=== PATIENT | female | born 1980 | race African-American/Black ===

== ENCOUNTER 2020-05-10 12:37 | Outpatient (REF) | payer OTHER, SELFPAY ==
[2020-05-10 13:27] LABS: MANUAL DIFF FLAG NO
[2020-05-10 13:40] LABS: Basophils Percent Auto 0.4 % (0-2); Eosinophils Absolute Auto 0.1 X10*3/uL (0.0-0.4); Eosinophils Percent Auto 1.4 % (0-4); Hematocrit 39.2 % (37-47); Hemoglobin 13.1 g/dl (12.0-16.0); Imm Gran Abs Auto 0.03 X10*3/uL (0.00-0.03); Imm Gran Pct Auto 0.4 % (0.0-0.4); Lymphocytes Absolute Auto 1.4 X10*3/uL (1.2-4.9); Lymphocytes Percent Auto 16.6 % (20-40); Mean Corpuscular HGB Conc 33.4 g/dl (31.0-35.0); Mean Corpuscular Hemoglobin 27.3 pg (27.0-33.0); Mean Corpuscular Volume 81.7 fL (80-98); Mean Platelet Volume 10.4 fL (9.4-12.3); Monocytes Absolute Auto 0.6 X10*3/uL (0.1-1.2); Monocytes Percent Auto 7.5 % (2-11); Neutrophils Absolute Auto 6.3 X10*3/uL (2.0-8.3); Neutrophils Percent Auto 73.7 % (45-73); Platelet Count 323 X10*3/uL (160-400); Red Cell Distribution Width 14.4 % (11.0-16.0); White Blood Count 8.5 X10*3/uL (4.8-10.8)
[2020-05-10 14:17] LABS: Alanine Aminotransferase 23 U/L (0-31); Albumin Level 4.2 g/dL (3.5-5.0); Alkaline Phosphatase 89 U/L (39-117); Anion Gap 13 (12-20); Aspartate Amino Transferase 17 U/L (5-31); Bilirubin Total 0.2 mg/dL (0.0-1.0); Blood Urea Nitrogen 14 mg/dL (9-16); Calcium 9.3 mg/dL (8.4-10.2); Carbon Dioxide 23 mmol/L (22-29); Chloride 105 mmol/L (96-108); Cholesterol 201 mg/dL; Estimated Glomerular Filt Rate 59; Glucose Fasting 104 mg/dL (60-99); HDL Cholesterol 58 mg/dL; LDL Cholesterol Calculated 121 mg/dl; Potassium 4.2 mmol/l (3.3-5.1); Sodium 137 mmol/L (135-145); Total Protein 7.3 g/dL (6.5-8.0); Triglycerides 111 mg/dL
[2020-05-10 14:20] LABS: TSH reflex Free T4 0.75 mIU/mL (0.32-4.0)
[2020-05-10 14:50] LABS: Glucose Urine UA NEG (NEG); Leukocyte Esterase Urine NEG (NEG); Nitrite Urine NEG (NEG); Urine Blood 1+ (NEG); Urine Ketones NEG (NEG); Urine Protein NEG (NEG-TRACE)
[2020-05-10 14:55] LABS: Appearance Urine CLOUDY; Color Urine YELLOW
[2020-05-10 15:13] LABS: WBC Urine 0 /HPF (0-4)
[2020-05-10 15:14] LABS: Mucus Urine TRACE /LPF; Squamous Epithelial Cell Urine 1+ /LPF
== END 2020-05-10 12:38 | disposition home or self-care (01) ==
LOC: HO.LAB 12:37
PROVIDERS: Visit Provider Internal Medicine
DX: Z00.00 Encounter for general adult medical examination without abnormal findings (principal); E66.9 Obesity, unspecified
CPT/HCPCS: 36415; 80053; 80061; 81001; 84443; 85025

== ENCOUNTER 2020-12-28 14:37 | Outpatient (REF) | payer OTHER, SELFPAY | END 2020-12-28 14:38 | disposition home or self-care (01) | LOC: HO.LAB 14:37 | PROVIDERS: PCP Internal Medicine; Visit Provider Internal Medicine | DX: Z20.822 Contact with and (suspected) exposure to COVID-19 (principal) | CPT/HCPCS: C9803; U0003; U0005 ==

== ENCOUNTER 2021-04-13 14:48 | Outpatient (REF) | payer OTHER, SELFPAY | END 2021-04-13 14:49 | disposition home or self-care (01) | LOC: HO.LAB 14:48 | PROVIDERS: Visit Provider Internal Medicine | DX: Z20.822 Contact with and (suspected) exposure to COVID-19 (principal) | CPT/HCPCS: C9803; U0003; U0005 ==

== ENCOUNTER 2022-03-01 15:52 | Outpatient (REF) | payer OTHER, SELFPAY ==
--- NOTE | ~2022-03-01 | MM_ITS ---
EXAMINATION: MM SCREENING DIGITAL BREAST TOMOSYNTHESIS, BILATERAL CLINICAL INFORMATION: Screening. Asymptomatic. The lifetime risk of breast cancer based on the Tyrer-Cuzick Model is 13%. COMPARISON: Mammography: 03/11/2019 (baseline), left breast ultrasound 03/11/2019. TECHNIQUE: Digital breast tomosynthesis is performed in both the craniocaudal and mediolateral oblique views along with computer-aided detection (CAD). Synthesized 2D images are generated from the tomosynthesis. FINDINGS: There are scattered areas of fibroglandular density (ACR BI-RADS breast composition Category b). Parenchymal pattern is similar to prior exam. There is no interval mass or architectural abnormality or abnormal calcifications. No architectural abnormality. Benign asymmetric fibroglandular tissue and/or hamartoma posterior 11:00 left breast is stable. The axilla and skin contours are unremarkable. No significant changes. MM/MM tomosynthesis screening BI IMPRESSION: No mammographic evidence of malignancy. ASSESSMENT: BI-RADS 2: Benign RECOMMENDATION: Routine annual mammography screening. This patient's information was entered into a reminder system with a target due date for their next mammogram.
== END 2022-03-01 15:53 | disposition home or self-care (01) ==
LOC: HO.MAMMO 15:52
PROVIDERS: PCP Internal Medicine; Visit Provider Internal Medicine
DX: Z12.31 Encounter for screening mammogram for malignant neoplasm of breast (principal)
CPT/HCPCS: 77063; 77067

== ENCOUNTER 2022-06-30 15:35 | Outpatient (REF) | payer OTHER, SELFPAY ==
[2022-06-30 17:45] LABS: Alanine Aminotransferase 12 U/L (0-31); Albumin Level 4.1 g/dL (3.5-5.0); Alkaline Phosphatase 92 U/L (39-117); Aspartate Amino Transferase 14 U/L (5-31); Bilirubin Direct < 0.2 mg/dL (0.0-0.5); Bilirubin Total 0.3 mg/dL (0.0-1.0); Total Protein 7.2 g/dL (6.5-8.0)
== END 2022-06-30 15:36 | disposition home or self-care (01) ==
LOC: HO.LAB 15:35
PROVIDERS: Absent Provider Internal Medicine; PCP Internal Medicine; Visit Provider Nurse Practitioner Psychiatric/Mental Health
DX: F10.20 Alcohol dependence, uncomplicated (principal); Z51.81 Encounter for therapeutic drug level monitoring; Z79.899 Other long term (current) drug therapy
CPT/HCPCS: 36415; 80076; 80305; 99212

== ENCOUNTER → 2022-07-10 14:57 | Outpatient (BNVA) | payer OTHER, SELFPAY | PROVIDERS: PCP Internal Medicine; Visit Provider Nurse Practitioner Psychiatric/Mental Health | DX: F10.20 Alcohol dependence, uncomplicated (principal); Z51.81 Encounter for therapeutic drug level monitoring; Z79.899 Other long term (current) drug therapy | CPT/HCPCS: 80305; 81025; 96372; 99212 ==

== ENCOUNTER → 2022-08-07 15:04 | Outpatient (BNVA) | payer OTHER, SELFPAY | PROVIDERS: PCP Internal Medicine; Visit Provider Nurse Practitioner Psychiatric/Mental Health | DX: F10.20 Alcohol dependence, uncomplicated (principal); E66.9 Obesity, unspecified; F33.9 Major depressive disorder, recurrent, unspecified; F41.9 Anxiety disorder, unspecified; Z51.81 Encounter for therapeutic drug level monitoring | CPT/HCPCS: 80305; 81025; 96372; 99212 ==

== ENCOUNTER → 2022-08-30 12:59 | Outpatient (BNVA) | payer OTHER, SELFPAY | PROVIDERS: PCP Internal Medicine; Visit Provider Surgery | DX: K64.8 Other hemorrhoids (principal) | CPT/HCPCS: 46600; 99202 ==

== ENCOUNTER 2022-09-26 07:28 | Day surgery (SDC) | payer OTHER, SELFPAY ==
[2022-09-20 10:01] VITALS: BMI 35.1
[2022-09-26] VITALS (12 sets, daily range): BP systolic 104–157; BP diastolic 23–82; PULSE 58–70; RESP 15–18; TEMP 35.8–36.4; O2SAT 99–100
--- NOTE | 2022-09-26 07:34 | MHC.SHP ---
Pre-Procedural Eval Section A Date of Service: 09/26/22 The patient is an INPATIENT: No Changes since office visit: No Cold of Flu in the past 2 weeks, No New Medical Problems, No Changes in Medication and No Patient answered all questions The History & Physical has been completed within 30 days and I have reviewed it.: Yes Section B Chief Complaint: Other hemorrhoids Allergies: Allergies Allergy/AdvReac Type Severity Reaction Status Date / Time Penicillins [PCN] Allergy Unknown UNKNOWN Verified 08/30/22 13:08 ethinyl estradiol AdvReac Intermediate headache- Verified 09/20/22 09:51 [Sprintec (28)] all hormonal controls norgestimate [Sprintec (28)] AdvReac Intermediate headache- Verified 09/20/22 09:51 all hormonal controls Plan I have reviewed the history and physical and performed a pertinent physical examination on my patient. No changes have occurred unless specified. Time Spent With Patient Time: Total time managing care of this patient today ____ minutes.
[2022-09-26 07:52] LABS: UPreg QC Valid YES; Urine Pregnancy NEGATIVE (NEGATIVE)
--- NOTE | 2022-09-26 08:27 | HO.ANESPROP2 ---
HPI - Anesthesia Eval Consult details Narrative: for hemoroidectomy PMFSH Active Problems Active Problems: All Active Problems (Updated 09/20/22 @ 09:56 by Kamila Ramos RN) Annual physical exam (Acute) Flu-like symptoms (Acute) Anxiety (Acute) Alcohol use disorder, moderate, dependence (Acute) Hemorrhoids (Acute) Hemorrhoids with complication (Acute) Depression (Acute) Obesity (BMI 30-39.9) (Acute) Past Medical History Medical History Alcohol use disorder Depression Hemorrhoids with complication Obesity (BMI 30-39.9) Family History Family History Father Hypertension Diabetes Mother Diabetes Hypertension Myocardial infarction, Onset Age: 65 Maternal Grandmother Myocardial infarction, Onset Age: 50 Sister Devic's disease Family history of problems with anesthesia: No Surgical History Surgical History History of laparoscopic cholecystectomy (~07/2017) Hx of myringotomy S/P section History of Problems with Anesthesia: No Social History Social History Housing: House Alcohol intake: former Patient Tobacco Use Status: Current everyday Tobacco user Tobacco use type: Cigarette Cigarette Packs Per Day: 0 Cigarettes Per Day: 1 e-Cigarette/Vaping Use: Never Used Second Hand Smoke Exposure: No Use of substances other than those prescribed or required for medical reasons: No Are you DNR?: No Advance Directives: No Advance Directives Information Provided: Yes service: No Current occupational status: employed Current occupational exposures/hazards: No Cognitive needs: No Hearing needs: No Vision needs: Yes Meds Allergies Allergy/AdvReac Type Severity Reaction Status Date / Time Penicillins [PCN] Allergy Unknown UNKNOWN Verified 09/26/22 07:51 ethinyl estradiol AdvReac Intermediate headache- Verified 09/26/22 07:51 [Sprintec (28)] all hormonal controls norgestimate [Sprintec (28)] AdvReac Intermediate headache- Verified 09/26/22 07:51 all hormonal controls Exam Exam Date and Time: September 26, 2022 0827 Height,Weight and Vital Signs: Height 5 ft 8.5 in Weight 106.311 kg Last Vital Signs Temp 96.5 F L 09/26/22 07:44 Pulse 68 09/26/22 07:44 Resp 15 09/26/22 07:44 BP 139/82 09/26/22 07:44 Pulse Ox 99 09/26/22 07:44 O2 Del Method Room Air 09/26/22 07:44 Pertinent Lab Results Pertinent Lab Results: Laboratory Tests 09/26/22 07:35 Urine Test NEGATIVE Airway Mallampati Class: II TM Dist: >3cm Neck ROM: Full Loose/Missing/Broken Teeth: Yes, Upper and Lower Heart: rrr Lungs: cta Assessment and Plan Assessment Anesthesia Assessment: Anesthesia Plan Discussed and Chart Reviewed Final Anesthetic Review Family History of Problems with Anesthesia: No History of Problems with Anesthesia: No NPO: Yes ASA Class: II Final Preanesthetic Review: No Changes in Pt Med Stat, Meds/Allgs Chart Reviewed, Consent Obtained/Reviewed and Anes Risks/Benef Reviewed Patient Risk: Intermediate Procedure Risk: Low Anesthetic Plan Anesthetic Plan: GA Disposition: Standard PACU
--- NOTE | 2022-09-26 08:44 | W.PM.OPN ---
Operative Note Operative Note Date of Service: 09/26/22 Narrative: Preop diagnosis: Internal external hemorrhoids with pain and bleeding Postop diagnosis: The same Procedure: Exam under anesthesia, hemorrhoidectomy x3 columns Surgeon: Anthony Mann MD The patient is a 42-year-old female who has large internal external hemorrhoids with lives with hygiene, occasional bleeding and pain and discomfort. She wanted to proceed with hemorrhoidectomy. She understood the technique of the procedure as well as the risks, benefits, and alternatives. She was brought to the operating room. She was placed in prone aleksandar-knife position under general anesthesia via endotracheal tube. The buttocks were retracted with wide tape laterally. The perianal area was prepped and draped in the usual sterile fashion. A surgical time-out was done. The patient received Cefotan 2 g IV preoperatively . The perianal area was infiltrated with lidocaine 1%.Examination of the anal orifice revealed bulky hemorrhoidal columns on the left lateral area, the right side lateral area as well as on the anterior area. These were all prolapsing Anwer a mix of internal external hemorrhoids I inserted the Aneta Manriquez retractor. I examined the anal canal circumferentially. Again, the hemorrhoidal columns which were bulky were noted as described above. I applied a Austin grasper on the hemorrhoidal column on the left side to retract this. I made a figure of 8 stitch at its pedicle using a chromic 3-0. I made an incision around this hemorrhoidal column to the perianal skin using blade 15. I excised this hemorrhoidal column above the plane of sphincters along this incision. I closed this incision with a running chromic 3-0 stitch with additional hemostatic [id number]-[id number] sutures being placed. I proceeded to again applied a Austin grasper on the hemorrhoidal column on the anterior area. I placed a hbvucu-[id number]-[id number] stitch at its pedicle using chromic 3-0. I made an incision around this hemorrhoidal column to the perianal skin using a blade 15 and excised this above the plane of the sphincters. I closed this incision with a running chromic 3-0 stitch. A 3rd hemorrhoidal column was excised in the same manner as above. This was on the right lateral aspect. I observed for hemostasis. Once hemostasis was confirmed, proceeded to then infiltrated the perianal area with Marcaine 0.5% for postop analgesia. I placed a Gelfoam packing, rolled, into the anal canal for further hemostasis. The procedure was then completed. The patient tolerated procedure well. There were no immediate complications. Initial and final counts of sponges and instruments were correct. Estimated blood loss was about 20 cc. The patient was extubated without difficulty and transferred to the recovery room with stable vital signs.
[2022-09-26] MEDS: Acetaminophen 325 MG TABLET 650 MG PO (09:10)
[2022-09-26] MEDS: oxyCODONE HCl Immed Release 5 MG TABLET PO ×2 (09:10→10:38)
[2022-09-26] MEDS: fentaNYL citrate/PF 100 MCG/2 ML VIAL 25 MCG IVPUSH ×4 (09:11→09:34)
[2022-09-26] MEDS: HYDROmorphone HCl 0.5 MG/0.5 ML SYRINGE IVPUSH (09:44)
== END 2022-09-26 11:20 | disposition home or self-care (01) ==
PROVIDERS: Anesthesiology; PCP Internal Medicine; Visit Provider Surgery
PROC: (CPT 46260; principal; 2022-09-26 08:40)
DX: K64.8 Other hemorrhoids (principal); K64.4 Residual hemorrhoidal skin tags; E66.9 Obesity, unspecified; F32.A Depression, unspecified; Z79.899 Other long term (current) drug therapy; Z88.0 Allergy status to penicillin; Z88.8 Allergy status to other drugs, medicaments and biological substances; Z90.49 Acquired absence of other specified parts of digestive tract; F17.210 Nicotine dependence, cigarettes, uncomplicated
CPT/HCPCS: 46260; 81025; 88304; J1100; J1170; J1885; J2250; J2405; J3010

== ENCOUNTER → 2022-11-02 10:23 | Outpatient (BNVA) | payer OTHER, SELFPAY | PROVIDERS: PCP Internal Medicine; Visit Provider Nurse Practitioner Psychiatric/Mental Health | DX: F10.20 Alcohol dependence, uncomplicated (principal); Z32.02 Encounter for pregnancy test, result negative; Z51.81 Encounter for therapeutic drug level monitoring; Z79.899 Other long term (current) drug therapy | CPT/HCPCS: 80305; 81025; 96372; 99212 ==

== ENCOUNTER → 2022-11-23 15:44 | Outpatient (BNVA) | payer OTHER, SELFPAY | PROVIDERS: PCP Internal Medicine; Visit Provider Surgery | DX: Z09 Encounter for follow-up examination after completed treatment for conditions other than malignant neoplasm (principal); Z87.19 Personal history of other diseases of the digestive system | CPT/HCPCS: 99212 ==

== ENCOUNTER → 2022-11-30 15:18 | Outpatient (BNVA) | payer OTHER, SELFPAY | PROVIDERS: PCP Internal Medicine; Visit Provider Nurse Practitioner Psychiatric/Mental Health | DX: F10.20 Alcohol dependence, uncomplicated (principal); F33.9 Major depressive disorder, recurrent, unspecified; Z32.02 Encounter for pregnancy test, result negative | CPT/HCPCS: 80305; 81025; 96372; 99212 ==

== ENCOUNTER → 2022-12-28 13:47 | Outpatient (BNVA) | payer OTHER, SELFPAY | PROVIDERS: PCP Internal Medicine; Visit Provider Nurse Practitioner Psychiatric/Mental Health | DX: Z51.81 Encounter for therapeutic drug level monitoring (principal); F10.20 Alcohol dependence, uncomplicated; Z79.899 Other long term (current) drug therapy | CPT/HCPCS: 80305; 81025; 96372; 99212 ==

== ENCOUNTER 2023-01-25 13:49 | Outpatient (AMB) | payer OTHER, SELFPAY ==
--- NOTE | 2023-01-25 13:56 | A.OFFVIS_ITS ---
Intake Vital Signs 01/25/23 14:13 BP 130/66 Blood Pressure Location Lt radial Position Sitting Pulse 86 Pulse Source Pulse Oximeter Pulse Oximetry (%) 96 Oxygen Delivery Method Room Air Intake Visit Reasons: QUENTIN INJ Intake Note: the patient presents for a quentin inj Color Control Operator Required: No Allergies Penicillins [PCN] Allergy (Unknown, Verified 01/25/23 13:57) UNKNOWN ethinyl estradiol [Sprintec (28)] Adverse Reaction (Intermediate, Verified 01/25/23 13:57) headache- all hormonal controls norgestimate [Sprintec (28)] Adverse Reaction (Intermediate, Verified 01/25/23 13:57) headache- all hormonal controls Do you need a note to return to daycare/school/sports/work: No PFSH Medical History Alcohol use disorder Depression Hemorrhoids with complication Obesity (BMI 30-39.9) Surgical History H/O hemorrhoidectomy (09/26/22) History of laparoscopic cholecystectomy (~07/2017) Hx of myringotomy S/P section Family History Father Hypertension Diabetes Mother Diabetes Hypertension Myocardial infarction, Onset Age: 65 Maternal Grandmother Myocardial infarction, Onset Age: 50 Sister Devic's disease Social History Housing: House Alcohol intake: former Patient Tobacco Use Status: Current everyday Tobacco user Tobacco use type: Cigarette Cigarette Packs Per Day: 0 Cigarettes Per Day: 1 e-Cigarette/Vaping Use: Never Used Second Hand Smoke Exposure: No service: No Current occupational status: employed Current occupational exposures/hazards: No Cognitive needs: No Hearing needs: No Vision needs: Yes Physical Exam Vital Signs: Last Vital Signs Pulse 86 01/25/23 14:13 BP 130/66 01/25/23 14:13 Pulse Ox 96 01/25/23 14:13 Oxygen Delivery Method Room Air 01/25/23 14:13 Office Meds Vivitrol ER Performing Provider: Kylee Vora CNP Administered by: Earnestine Quijano RN on 01/25/23 14:47 Dose Route Admin Location Lot Number Expiration Date [employer] 380 mg IM [id number] 04/24/25 11829-011-01 [employer] Comments: Assessed for infection, no pain, no swelling, no redness, no discharge, no fever. Pt tolerated injection. Results AMB 14 Panel Urine Drug Screen Urine Marijuana (THC) Negative Last Edit by Chloe Rowley CMA on 01/25/23 14:20 Urine Cocaine Negative Last Edit by Chloe Rowley CMA on 01/25/23 14:20 Urine Morphine Negative Last Edit by Chloe Rowley CMA on 01/25/23 14:20 Urine Methamphetamine Negative Last Edit by Chloe Rowley CMA on 01/25/23 14:20 Urine Amphetamine Negative Last Edit by Chloe Rowley CMA on 01/25/23 14:2 0 Urine Benzodiazepine Negative Last Edit by Chloe Rowley CMA on 01/25/23 14:20 Urine Barbiturates Negative Last Edit by Chloe Rowley CMA on 01/25/23 14: 20 Urine Methadone Negative Last Edit by Chloe Rowley CMA on 01/25/23 14:20 Urine Buprenorphine Negative Last Edit by Chloe Rowley CMA on 01/25/23 14 :20 Urine Tricyclic Antidepressant Negative Last Edit by Chloe Rowley CMA on 01/25/23 14:20 Urine MDMA Negative Last Edit by Chloe Rowley CMA on 01/25/23 14:20 Urine Oxycodone Negative Last Edit by Chloe Rowley CMA on 01/25/23 14:20 Urine Phencyclidine Negative Last Edit by Chloe Rowley CMA on 01/25/23 14 :20 Urine Propoxyphene Negative Last Edit by Chloe Rowley CMA on 01/25/23 14: 20 AMB Test Urine AMB Test Urine Negative Last Edit by Chloe Rowley CMA on 14:23 Results Reviewed Results Reviewed: Laboratory Last Values [facility] Negative 01/25/23 14:15 POC Urine Buprenorphine Negative 01/25/23 14:15 POC Urine Morphine Negative 01/25/23 14:15 POC Urine Oxycodone Negative 01/25/23 14:15 POC Urine Methadone Negative 01/25/23 14:15 POC Urine Propoxyphene Negative 01/25/23 14:15 POC Urine Barbiturates Negative 01/25/23 14:15 POC U Tricyclic Antidpr Negative 01/25/23 14:15 POC Urine PCP Negative 01/25/23 14:15 POC Ur Amphetamines Negative 01/25/23 14:15 POC Ur Methamphetamine Negative 01/25/23 14:15 POC Urine MDMA Negative 01/25/23 14:15 POC Ur Benzodiazepine Negative 01/25/23 14:15 POC Urine Cocaine Negative 01/25/23 14:15 POC Ur Marijuana (THC) Negative 01/25/23 14:15 Assessment & Plan Assessment & Plan Orders: Orders AMB Naltrexone Injection Patient Supplied 01/25/23 F10.20 - Alcohol dependence, uncomplicated AMB 14 Panel Urine Drug Screen 01/25/23 Z51.81 - Encounter for therapeutic drug level monitoring AMB HCG Urine Test 01/25/23 Z32.01 - Encounter for test, result positive, Z32.02 - Encounter for test, result negative Coding Diagnoses
[2023-01-25 14:13] VITALS: BP 130/66; PULSE 86; O2SAT 96
--- NOTE | 2023-01-25 14:23 | MHC.OFFVIS ---
Intake Vital Signs 01/25/23 14:13 BP 130/66 Blood Pressure Location Lt radial Position Sitting Pulse 86 Pulse Source Pulse Oximeter Pulse Oximetry (%) 96 Oxygen Delivery Method Room Air Intake Visit Reasons: QUENTIN INJ Allergies Penicillins [PCN] Allergy (Unknown, Verified 01/25/23 13:57) UNKNOWN ethinyl estradiol [Sprintec (28)] Adverse Reaction (Intermediate, Verified 01/25/23 13:57) headache- all hormonal controls norgestimate [Sprintec (28)] Adverse Reaction (Intermediate, Verified 01/25/23 13:57) headache- all hormonal controls HPI QUENTIN INJ HPI Details Patient presents for follow up and vivitrol injection Reports that she continues to abstain from alcohol use and is doing well with recovery Recently traveled to [facility] for family reunion, felt supported, minimal cravings [facility] Medical History Alcohol use disorder Depression Hemorrhoids with complication Obesity (BMI 30-39.9) Surgical History H/O hemorrhoidectomy (09/26/22) History of laparoscopic cholecystectomy (~07/2017) Hx of myringotomy S/P section Family History Father Hypertension Diabetes Mother Diabetes Hypertension Myocardial infarction, Onset Age: 65 Maternal Grandmother Myocardial infarction, Onset Age: 50 Sister Devic's disease Social History Housing: House Alcohol intake: former Patient Tobacco Use Status: Current everyday Tobacco user Tobacco use type: Cigarette Cigarette Packs Per Day: 0 Cigarettes Per Day: 1 e-Cigarette/Vaping Use: Never Used Second Hand Smoke Exposure: No service: No Current occupational status: employed Current occupational exposures/hazards: No Cognitive needs: No Hearing needs: No Vision needs: Yes Review of Systems Const Reports as per HPI and Reports no additional complaints Physical Exam Vital Signs: Last Vital Signs Pulse 86 01/25/23 14:13 BP 130/66 01/25/23 14:13 Pulse Ox 96 01/25/23 14:13 Oxygen Delivery Method Room Air 01/25/23 14:13 Const General: cooperative, healthy appearing, comfortable, well developed and alert Nutritional Appearance: well nourished Orientation/consciousness: patient oriented x3 Limitations: no limitations Neuro General: patient oriented x3 Psych Appearance: well kempt Speech and movement: Normal speech and movement present Affect: normal affect Attitude: cooperative Thought process: Normal thought process present Thought content: Normal thought content present Insight: Good insight present (Psych) Judgement: Good judgement present (Psych) Office Meds Vivitrol ER Performing Provider: Kylee Vora CNP Administered by: Earnestine Quijano RN on 01/25/23 14:47 Dose Route Admin Location Lot Number Expiration Date [employer] 380 mg IM [id number] 04/24/25 [id number] [employer] Comments: Assessed for infection, no pain, no swelling, no redness, no discharge, no fever. Pt tolerated injection. Results AMB 14 Panel Urine Drug Screen Urine Marijuana (THC) Negative Last Edit by Chloe Rowley CMA on 01/25/23 14:20 Urine Cocaine Negative Last Edit by Chloe Rowley CMA on 01/25/23 14:20 Urine Morphine Negative Last Edit by Chloe Rowley CMA on 01/25/23 14:20 Urine Methamphetamine Negative Last Edit by Chloe Rowley CMA on 01/25/23 14:20 Urine Amphetamine Negative Last Edit by Chloe Rowley CMA on 01/25/23 14:20 Urine Benzodiazepine Negative Last Edit by Chloe Rowley CMA on 01/25/23 14:20 Urine Barbiturates Negative Last Edit by Chloe Rowley CMA on 01/25/23 14:20 Urine Methadone Negative Last Edit by Chloe Rowley CMA on 01/25/23 14:20 Urine Buprenorphine Negative Last Edit by Chloe Rowley CMA on 01/25/23 14:20 Urine Tricyclic Antidepressant Negative Last Edit by Chloe Rowley CMA on 01/25/23 14:20 Urine MDMA Negative Last Edit by Chloe Rowley CMA on 01/25/23 14:20 Urine Oxycodone Negative Last Edit by Chloe Rowley CMA on 01/25/23 14:20 Urine Phencyclidine Negative Last Edit by Chloe Rowley CMA on 01/25/23 14:20 Urine Propoxyphene Negative Last Edit by Chloe Rowley CMA on 01/25/23 14:20 AMB Test Urine AMB Test Urine Negative Last Edit by Chloe Rowley CMA on 01/25/23 14:23 Results Reviewed Results Reviewed: Laboratory Last Values [facility] Negative 01/25/23 14:15 POC Urine Buprenorphine Negative 01/25/23 14:15 POC Urine Morphine Negative 01/25/23 14:15 POC Urine Oxycodone Negative 01/25/23 14:15 POC Urine Methadone Negative 01/25/23 14:15 POC Urine Propoxyphene Negative 01/25/23 14:15 POC Urine Barbiturates Negative 01/25/23 14:15 POC U Tricyclic Antidpr Negative 01/25/23 14:15 POC Urine PCP Negative 01/25/23 14:15 POC Ur Amphetamines Negative 01/25/23 14:15 POC Ur Methamphetamine Negative 01/25/23 14:15 POC Urine MDMA Negative 01/25/23 14:15 POC Ur Benzodiazepine Negative 01/25/23 14:15 POC Urine Cocaine Negative 01/25/23 14:15 POC Ur Marijuana (THC) Negative 01/25/23 14:15 Assessment & Plan Assessment & Plan (1) Alcohol use disorder, moderate, dependence: Code(s): F10.20 - Alcohol dependence, uncomplicated Plan: tolerated injection follow up 4 weeks Orders: Orders AMB Naltrexone Injection Patient Supplied 01/25/23 F10.20 - Alcohol dependence, uncomplicated AMB 14 Panel Urine Drug Screen 01/25/23 Z51.81 - Encounter for therapeutic drug level monitoring AMB HCG Urine Test 01/25/23 Z32.01 - Encounter for test, result positive, Z32.02 - Encounter for test, result negative Coding Level of Care Code Est Pt Level 3 (90705) Diagnoses Alcohol use disorder, moderate, dependence F10.20
== END 2023-01-25 15:19 | disposition home or self-care (01) ==
LOC: HO.HCC 13:49
PROVIDERS: PCP Internal Medicine; Visit Provider Nurse Practitioner Psychiatric/Mental Health
DX: F10.20 Alcohol dependence, uncomplicated (principal)
CPT/HCPCS: 99213; J2315

== ENCOUNTER → 2023-01-25 13:49 | Outpatient (BNVA) | payer OTHER, SELFPAY | PROVIDERS: PCP Internal Medicine; Visit Provider Nurse Practitioner Psychiatric/Mental Health | DX: Z51.81 Encounter for therapeutic drug level monitoring (principal); F10.20 Alcohol dependence, uncomplicated; Z79.899 Other long term (current) drug therapy | CPT/HCPCS: 80305; 81025; 96372; 99212 ==

== ENCOUNTER 2023-02-21 13:34 | Outpatient (AMB) | payer OTHER, SELFPAY ==
[2023-02-21 13:36] VITALS: BP 124/78; PULSE 81; O2SAT 96; BMI 38.1
--- NOTE | 2023-02-21 13:36 | A.OFFPC_ITS ---
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 Accompanied by: Self / Same As Patient Allergies Penicillins [PCN] Allergy (Unknown, Verified 02/21/23 14:06) UNKNOWN ethinyl estradiol [Sprintec (28)] Adverse Reaction (Intermediate, Verified 02/21/23 14:06) headache- all hormonal controls norgestimate [Sprintec (28)] Adverse Reaction (Intermediate, Verified 02/21/23 14:06) headache- all hormonal controls Medication List - Last Reconciled 02/21/23 by Henri Mathew MD bupropion HCl (Wellbutrin XL) 150 mg PO QAM hydroxyzine HCl 50 mg PO BID PRN naltrexone 50 mg PO DAILY naltrexone microspheres ER (Vivitrol) 380 mg IM Q4W nicotine (polacrilex) 4 mg buccal Q8H PRN Tobacco use date assessed: 02/21/23 Dental Screening Dental Screen Date: 02/21/23 Did you have a dental visit in the last 12 months?: No Did you have a dental problem in the last 6 months where you did not have access to dental care?: No Was dental information given to patient?: No HPI Annual Exam HPI Details Patient comes in today for her annual physical examination States that she feels okay She denies any headaches or dizziness Denies any chest pains, no SOB No nausea/vomiting, no abdominal pain No change in bowel habits noted Denies any acute urinary symptoms Is currently still on Vivitrol injections for her alcohol use disorder and feels that she is doing very well on this Adds that she is now 114 days smoke-free and states that she does not miss her cigarettes at all but has gained a lot of weight since she quit smoking States that she is now going to be working on her weight She is scheduled for her next mammogram in a couple of weeks on 03/07/23 and has an appointment to see gynecology for her yearly exam and pap smear next month on 03/21/23 [facility] Medical History Alcohol use disorder Depression Hemorrhoids with complication Obesity (BMI 30-39.9) Surgical History H/O hemorrhoidectomy (09/26/22) History of laparoscopic cholecystectomy (~07/2017) Hx of myringotomy S/P section Family History Father Hypertension Diabetes Mother Diabetes Hypertension Myocardial infarction, Onset Age: 65 Maternal Grandmother Myocardial infarction, Onset Age: 50 Sister Devic's disease Social History Housing: House Alcohol intake: former Patient Tobacco Use Status: Former Tobacco user Quit Date: 114 days ago from 02/21/2023 Tobacco use type: Cigarette Cigarette Packs Per Day: 0 Cigarettes Per Day: 1 e-Cigarette/Vaping Use: Never Used Second Hand Smoke Exposure: No service: No Current occupational status: employed Current occupational exposures/hazards: No Cognitive needs: No Hearing needs: No Vision needs: Yes Questionnaire PHQ-9 Over the last 2 weeks, how often have you been bothered by any of the following problems? 1. Little interest or pleasure in doing things: nearly every day 2. Feeling down, depressed, or hopeless: several days 3. Trouble falling or staying asleep, or sleeping too much: several days 4. Feeling tired or having little energy: nearly every day 5. Poor appetite or overeating: several days 6. Feeling bad about yourself - or that you are a failure or have let yourself or your family down: not at all 7. Trouble concentrating on things, such as reading the newspaper or watching television: not at all 8. Moving or speaking so slowly that other people could have noticed. Or the opposite - being so fidgety or restless that you have been moving around a lot more than usual: several days 9. Thoughts that you would be better off or of hurting yourself in some way: not at all Total score: 10 Depression Screening Interpretation: Positive Depression Screening Follow-up: Existing condition and In treatment 28273 - PHQ-9 Billing: Yes Source: Developed by Drs. Shane Membreno, Rola B.Ariel Call and colleagues, with an educational avtar from [employer]. Thrive Questionnaire Date Thrive assessed: 02/21/23 I am a: Patient What is your living situation today?: I have a steady place to live Within the past 12 months, did the food you bought not last and you didn't have the money to get more?: Never true Within the past 12 months, did you worry whether your food would run out before you got money to buy more?: Never true Do you have trouble paying for medicines?: No Do you have trouble getting transportation to medical appointments?: No Do you have trouble paying your heating and electricity bill?: No Do you have trouble taking care of your child, family member or friend?: No Do you have trouble with day-to-day activities such as bathing, preparing meals, shopping, managing finances, etc.?: No Are you currently unemployed and looking for a job?: No Are you interested in more education?: No Please select the resources that you would like help with: None Currently or been in a relationship where the following occur: no concerns reported AUDIT C Alcohol Use Questionnaire (AUDIT-C) 1. How often do you have a drink containing alcohol?: Never Total Score: 0 Score Reviewed/Action Taken: Yes JUDAH-7 AMB Questionnaire JUDAH-7 Date JUDAH - 7 assessed: 02/21/23 Feeling nervous, anxious, or on edge: 1 = Several days Not being able to stop or control worryin = Not at all Worrying too much about different things: 3 = Nearly every day Trouble relaxin = Not at all Being so restless that it is hard to sit still: 0 = Not at all Becoming easily annoyed or irritable: 1 = Several days Feeling afraid as if something awful might happen: 0 = Not at all Total JUDAH-7 score (0-4 normal; 5-9 mild; 10-14 moderate; 15-21 severe): 5 Source: Developed by Drs. Shane Membreno, Ariel Riley and colleagues, with an educational avtar from [employer]. Review of Systems Const Denies chills, Denies fatigue, Denies fever(s), Denies headache(s) and Denies malaise Eyes Denies blurry vision, Denies change in vision, Denies irritation and Denies itchy eyes ENT Denies dysphagia, Denies dizziness, Denies otalgia, Denies headache(s), Denies nasal congestion, Denies neck pain, Denies odynophagia, Denies sinus pain and Denies sore throat Card Denies chest pain, Denies rapid heart rate, Denies irregular heart rhythm, Denies palpitations and Denies dyspnea Resp Denies chest congestion, Denies cough, Denies dyspnea and Denies wheezing GI Denies abdominal pain, Denies bloating, Denies constipation, Denies dysphagia, Denies heartburn, Denies diarrhea, Denies nausea, Denies odynophagia and Denies vomiting Denies hematuria, Denies urinary frequency, Denies dysuria, Denies urinary incontinence and Denies urinary urgency Musc Denies back pain, Denies arthralgias, Denies joint swelling, Denies muscle weakness and Denies neck pain Skin/Breast Denies breast pain, Denies breast mass, Denies change in pigmentation, Denies lesions, Denies rash and Denies unusual bruising Neuro Denies dizziness, Denies headache(s) and Denies paresthesias Psych Denies anxiety and Denies depression Endo Denies fatigue and Denies palpitations Favian/Lymph Denies easy bruising Aller/Immun Denies itchy eyes and Denies wheezing Physical exam (Primary Care) Vital Signs: Last Vital Signs Pulse 81 02/21/23 13:36 BP 124/78 02/21/23 13:36 Pulse Ox 96 02/21/23 13:36 Oxygen Delivery Method Room Air 02/21/23 13:36 BMI result Body Mass Index 38.1 Tobacco/Smoking Status: Tobacco use Status Tobacco use date assessed 02/21/23 02/21/23 13:44 Patient Tobacco Use Status Current everyday Tobacco 02/21/23 13:44 Tobacco use type Cigarette 02/21/23 13:44 e-Cigarette/Vaping Use Never Used 02/21/23 13:44 PHQ-9: PHQ-9 Score PHQ-9: Total score 10 02/21/23 13:44 Depression Screening Interpretation: Positive Depression Screening Follow-up: Existing condition and In treatment Thrive Assessment: Date of Thrive Assessment Date Thrive assessed 02/21/23 02/21/23 13:44 Currently or been in a relationship where the following occur: no concerns reported Const General: no acute distress, alert and awake Orientation/consciousness: patient oriented x3 HENMT Head: Yes normocephalic and Yes atraumatic Ears: external ears normal, TM's normal bilaterally and EAC's normal General nose exam: No nasal discharge present Face and sinus: Yes normal facial exam and Yes sinuses nontender Teeth and gingiva: dentition normal Throat: Yes posterior oropharynx normal and Yes tonsils normal (no TP congestion) Eyes Eyelids: Yes eyelids normal Conjunctivae: conjunctivae normal Pupils: Equal, round and reactive pupils present EOM: EOMs intact bilaterally Neck Neck: Yes no lymphadenopathy and Yes supple Thyroid: Thyroid normal Resp Auscultation: clear to auscultation bilaterally, no rales and no wheezes Cardio Rate: regular rate Rhythm: regular rhythm Heart sounds: no murmurs GI Palpation (GI): Soft to palpation, nontender and No hepatosplenomegaly present Auscultation: normal bowel sounds General: Yes no CVA tenderness Back/Spine/Pelvis Back: no CVA tenderness Thoracic/Lumbar Spine: thoracic and lumbar spine normal to inspection Skin Lesions: no lesions Rashes: no rashes Neuro General: patient oriented x3, moves all extremities, no focal motor deficits and CN's II-XI intact bilaterally Cranial nerves: Yes Equal, round and reactive pupils present Cognition (Neuro): normal cognition Gait exam (Neuro): Normal gait present Extrem General: Yes no clubbing, cyanosis or edema Assessment and Plan Assessment & Plan (1) Annual physical exam: Code(s): Z00.00 - Encounter for general adult medical examination without abnormal findings Plan: Check labs She had her annual mammogram last done in February 2022 and is scheduled for her repeat mammogram in a couple of weeks on 03/07/23 She is also scheduled to see gynecology next month on 03/21/23 for her annual pap smear and staffing program manager exam (2) Alcohol use disorder, moderate, dependence: Code(s): F10.20 - Alcohol dependence, uncomplicated Plan: States that she is currently doing very well on her Vivitrol injections - 380 mg IM Q 4 weeks Continue Naltrexone 50 mg QD Follow up with Kylee Vora as scheduled (3) Anxiety: Code(s): F41.9 - Anxiety disorder, unspecified Plan: Continue Hydroxyzine 50 mg BID PRN Is also on Bupropion XL, which helps with anxiety as well (4) Depression: Comment: Wellbutrin working well, mood improved. Stable affect. Code(s): F32.9 - Major depressive disorder, single episode, unspecified Qualifiers: Depression Type: major depressive disorder Major depression recurrence: recurrent Active/Remission status: currently active Major depression episode severity: unspecified Qualified Code(s): F33.9 - Major depressive disorder, recurrent, unspecified Plan: Continue Bupropion XL 150 mg QD Follow up with psychiatry as scheduled (5) Obesity (BMI 30-39.9): Code(s): E66.9 - Obesity, unspecified Plan: Reinforced diet/exercise as tolerated/lose weight States that she has gained a lot of weight since she quit smoking (is now 114 days since she quit cigarettes completely) and states that she will now start working on her diet and weight loss Plan To return in 1 year for her next annual physical examination Orders: Orders Comprehensive [place]. Panel Fast Today E78.00 - Pure hypercholesterolemia, unspecified, Z00.00 - Encounter for general adult medical examination without abnormal findings Lipid Panel Today E78.00 - Pure hypercholesterolemia, unspecified, Z00.00 - Encounter for general adult medical examination without abnormal findings TSH reflex Free T4 Today E78.00 - Pure hypercholesterolemia, unspecified, Z00.00 - Encounter for general adult medical examination without abnormal findings Vitamin D 25-OH Total Today E55.9 - Vitamin D deficiency, unspecified, Z00.00 - Encounter for general adult medical examination without abnormal findings Complete Blood Count Auto Diff Today Z00.00 - Encounter for general adult medical examination without abnormal findings UA CC w/rflx Micro + Cult Today R30.0 - Dysuria, Z00.00 - Encounter for general adult medical examination without abnormal findings Coding Level of Care Code Est Pt Prev Care 40-64y(92415) Diagnoses Annual physical exam Z00.00 Alcohol use disorder, moderate, dependence F10.20 Anxiety F41.9 Depression F33.9 Depression Type: major depressive disorder Major depression recurrence: recurrent Active/Remission status: currently active Major depression episode severity: unspecified Obesity (BMI 30-39.9) E66.9
== END 2023-02-21 14:18 | disposition home or self-care (01) ==
PROVIDERS: PCP Internal Medicine; Visit Provider Internal Medicine
DX: Z00.00 Encounter for general adult medical examination without abnormal findings (principal); F10.20 Alcohol dependence, uncomplicated; F41.9 Anxiety disorder, unspecified; F33.9 Major depressive disorder, recurrent, unspecified; E66.9 Obesity, unspecified
CPT/HCPCS: 99396

== ENCOUNTER 2023-02-27 14:47 | Outpatient (AMB) | payer OTHER, SELFPAY ==
--- NOTE | 2023-02-27 14:50 | AM.OFFVISNUR ---
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 Allergies Penicillins [PCN] Allergy (Unknown, Verified 02/27/23 14:53) UNKNOWN ethinyl estradiol [Sprintec (28)] Adverse Reaction (Intermediate, Verified 02/27/23 14:53) headache- all hormonal controls norgestimate [Sprintec (28)] Adverse Reaction (Intermediate, Verified 02/27/23 14:53) headache- all hormonal controls Do you need a note to return to daycare/school/sports/work: No Results AMB 14 Panel Urine Drug Screen Urine Marijuana (THC) Negative Last Edit by Chloe Rwoley CMA on 02/27/23 15:07 Urine Cocaine Negative Last Edit by Chloe Rowley CMA on 02/27/23 15:07 Urine Morphine Negative Last Edit by Chloe Rowley CMA on 02/27/23 15:07 Urine Methamphetamine Negative Last Edit by Chloe Rowley CMA on 02/27/23 15:07 Urine Amphetamine Negative Last Edit by Chloe Rowley CMA on 02/27/23 15:07 Urine Benzodiazepine Negative Last Edit by Chloe Rowley CMA on 02/27/23 15:07 Urine Barbiturates Negative Last Edit by Chloe Rowley CMA on 02/27/23 15:07 Urine Methadone Negative Last Edit by Chloe Rowley CMA on 02/27/23 15:07 Urine Buprenorphine Negative Last Edit by Chloe Rowley CMA on 02/27/23 15:07 Urine Tricyclic Antidepressant Negative Last Edit by Chloe Rowley CMA on 02/27/23 15:07 Urine MDMA Negative Last Edit by Chloe Rowley CMA on 02/27/23 15:07 Urine Oxycodone Negative Last Edit by Chloe Rowley CMA on 02/27/23 15:07 Urine Phencyclidine Negative Last Edit by Chloe Rowley CMA on 02/27/23 15:07 Urine Propoxyphene Negative Last Edit by Chloe Rowley CMA on 02/27/23 15:07 AMB Test Urine AMB Test Urine Negative Last Edit by Chloe Rowley CMA on 02/27/23 15:08 Coding Diagnoses Assessment & Plan Assessment & Plan Orders: Orders AMB 14 Panel Urine Drug Screen Today Z51.81 - Encounter for therapeutic drug level monitoring AMB HCG Urine Test Today Z32.01 - Encounter for test, result positive, Z32.02 - Encounter for test, result negative
[2023-02-27 15:02] VITALS: BP 118/84; PULSE 96; O2SAT 97
== END 2023-02-27 15:39 | disposition home or self-care (01) ==
LOC: HO.HCC 14:47
PROVIDERS: PCP Internal Medicine
DX: Z32.02 Encounter for pregnancy test, result negative (principal); Z32.01 Encounter for pregnancy test, result positive; F10.20 Alcohol dependence, uncomplicated; Z51.81 Encounter for therapeutic drug level monitoring
CPT/HCPCS: J2315

== ENCOUNTER → 2023-02-27 14:47 | Outpatient (BNVA) | payer OTHER, SELFPAY | PROVIDERS: PCP Internal Medicine | DX: F11.20 Opioid dependence, uncomplicated (principal) | CPT/HCPCS: 80305; 81025; 96372 ==

== ENCOUNTER 2023-03-07 15:23 | Outpatient (REF) | payer OTHER, SELFPAY | END 2023-03-07 15:24 | disposition home or self-care (01) | LOC: HO.MAMMO 15:23 | PROVIDERS: PCP Internal Medicine; Visit Provider Internal Medicine | DX: Z12.31 Encounter for screening mammogram for malignant neoplasm of breast (principal) | CPT/HCPCS: 77063; 77067 ==

== ENCOUNTER → 2023-03-07 15:45 | Outpatient (BNV) | payer OTHER, SELFPAY | PROVIDERS: PCP Internal Medicine; Visit Provider Radiology Diagnostic Radiology | DX: Z12.31 Encounter for screening mammogram for malignant neoplasm of breast (principal) | CPT/HCPCS: 77063; 77067 ==

== ENCOUNTER 2023-03-14 09:03 | Outpatient (REF) | payer OTHER, SELFPAY ==
[2023-03-14 09:20] LABS: MANUAL DIFF FLAG NO
[2023-03-14 10:13] LABS: Basophils Percent Auto 0.4 % (0-2); Eosinophils Absolute Auto 0.2 X10*3/uL (0.0-0.4); Eosinophils Percent Auto 2.2 % (0-4); Hematocrit 39.1 % (37.0-47.0); Hemoglobin 12.7 g/dl (12.0-16.0); Imm Gran Abs Auto 0.04 X10*3/uL (0.00-0.03); Imm Gran Pct Auto 0.4 % (0.0-0.4); Lymphocytes Absolute Auto 1.9 X10*3/uL (1.2-4.9); Lymphocytes Percent Auto 19.3 % (20-40); Mean Corpuscular HGB Conc 32.5 g/dl (31.0-35.0); Mean Corpuscular Hemoglobin 25.2 pg (27.0-33.0); Mean Corpuscular Volume 77.6 fL (80.0-98.0); Mean Platelet Volume 9.9 fL (9.4-12.3); Monocytes Absolute Auto 0.6 X10*3/uL (0.1-1.2); Monocytes Percent Auto 6.5 % (2-11); Neutrophils Percent Auto 71.2 % (45-73); Platelet Count 442 X10*3/uL (160-400); Red Blood Count 5.04 X10*6/uL (4.20-5.50); Red Cell Distribution Width 14.9 % (11.0-16.0); White Blood Count 9.8 X10*3/uL (4.8-10.8)
[2023-03-14 10:43] LABS: Appearance Urine Clear; Color Urine Yellow; Glucose Urine UA Negative (Negative); Leukocyte Esterase Urine Negative (Negative); Nitrite Urine Negative (Negative); PH 5.5 (5.0-9.0); Specific Gravity - Urine 1.015 (1.005-1.025); Urine Blood Negative (Negative); Urine Ketones Negative (Negative); Urine Protein Negative (Neg-Trace)
[2023-03-14 11:51] LABS: Alanine Aminotransferase 24 U/L (0-31); Albumin Level 3.9 g/dL (3.5-5.0); Alkaline Phosphatase 91 U/L (39-117); Anion Gap 13 (12-20); Aspartate Amino Transferase 18 U/L (5-31); Bilirubin Total 0.3 mg/dL (0.0-1.0); Blood Urea Nitrogen 12 mg/dL (9-16); Calcium 9.9 mg/dL (8.4-10.2); Carbon Dioxide 27 mmol/L (22-29); Chloride 105 mmol/L (96-108); Cholesterol 202 mg/dL (<200); Estimated Glomerular Filt Rate > 60; Glucose Fasting 105 mg/dL (60-99); HDL Cholesterol 57 mg/dL (>40); LDL Cholesterol Calculated 122 mg/dL (<100); Sodium 141 mmol/L (135-145); Total Protein 7.6 g/dL (6.5-8.0); Triglycerides 115 mg/dL (<150)
[2023-03-14 11:54] LABS: TSH reflex Free T4 0.57 uIU/mL (0.32-4.0); Vitamin D 25-OH Total 24.8 ng/mL (>30)
== END 2023-03-14 09:04 | disposition home or self-care (01) ==
LOC: HO.LAB 09:03
PROVIDERS: PCP Internal Medicine; Visit Provider Internal Medicine
DX: Z00.00 Encounter for general adult medical examination without abnormal findings (principal); E78.00 Pure hypercholesterolemia, unspecified; R30.0 Dysuria; E55.9 Vitamin D deficiency, unspecified
CPT/HCPCS: 36415; 80053; 80061; 81003; 82306; 84443; 85025

== ENCOUNTER 2023-03-21 09:15 | Outpatient (REF) | payer OTHER, SELFPAY ==
[2023-03-24 06:39] LABS: HPV mRNA E6/E7 rflx Not Detected (Not Detected)
== END 2023-03-21 09:16 | disposition home or self-care (01) ==
LOC: HO.LNP 09:15
PROVIDERS: PCP Internal Medicine; Visit Provider Obstetrics & Gynecology
DX: Z01.419 Encounter for gynecological examination (general) (routine) without abnormal findings (principal); N85.2 Hypertrophy of uterus
CPT/HCPCS: 87624; 88142; 99386

== ENCOUNTER 2023-03-21 09:15 | Outpatient (AMB) | payer OTHER, SELFPAY ==
--- NOTE | 2023-03-21 09:22 | MHC.OFFVIS ---
Intake Vital Signs 03/21/23 09:24 Height 5 ft 8.5 in Weight 250 lb BMI 37.5 BP 120/82 Intake Visit Reasons: New patient Annual/DO not reschedule Intake Note: no concerns Technician Support Association Required: No Information Interpreted: non-clinical & clinical Warehouse Incentive Selector: Warehouse Incentive Selector Present (Amanda HERNANDES) Accompanied by: Self / Same As Patient Allergies Penicillins [PCN] Allergy (Unknown, Verified 03/21/23 09:23) UNKNOWN ethinyl estradiol [Sprintec (28)] Adverse Reaction (Intermediate, Verified 03/21/23 09:23) headache- all hormonal controls norgestimate [Sprintec (28)] Adverse Reaction (Intermediate, Verified 03/21/23 09:23) headache- all hormonal controls Is last menstrual period known: Yes Last menstrual period: 03/03/23 HPI HPI Comments History of Present Illness Details Presenting for annual exam. No complaints. Last Pap/HPV Last Mammogram was done in 03/07/2023, the results are still pending. Previous mammogram done in 03/16 was [facility] Medical History Alcohol use disorder Hemorrhoids with complication Depression Obesity (BMI 30-39.9) Surgical History H/O hemorrhoidectomy (09/26/22) S/P section History of laparoscopic cholecystectomy (~07/2017) Hx of myringotomy Family History Father Hypertension Diabetes Mother Diabetes Hypertension Myocardial infarction, Onset Age: 65 Maternal Grandmother Myocardial infarction, Onset Age: 50 Sister Devic's disease Social History (Updated 03/21/23 @ 09:27 by Amanda Villa CMA) Household Members: Children Housing: House Alcohol intake: former Patient Tobacco Use Status: Former Tobacco user Quit Date: 114 days ago from 02/21/2023 Tobacco use type: Cigarette Cigarette Packs Per Day: 0 Cigarettes Per Day: 1 e-Cigarette/Vaping Use: Never Used Second Hand Smoke Exposure: No service: No 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: No Sexually active: Yes Sexual orientation: Straight/Heterosexual Gender identity: Female Cognitive needs: No Hearing needs: No Vision needs: Yes Female Reproductive History Menstrual Age of Menarche: 11 Duration of menses: 3-5 days Date of last menstrual period: 03/03/23 Total pregnancies: 4 Full term: 2 Number of Living Children: 2 Date of last pap smear: 03/05/19 Date of Mammogram: 03/07/23 Review of Systems Const All systems reviewed & are unremarkable except as noted in HPI and below Card Reports as per HPI Resp Reports as per HPI GI Reports as per HPI and Reports no additional complaints Reports as per HPI Physical Exam Vital Signs: Last Vital Signs BP 120/82 03/21/23 09:24 BMI result Body Mass Index 37.5 Const General: cooperative, healthy appearing and comfortable Chest Chest palpation & inspection: normal inspection of the chest and normal palpation of entire chest wall Breast/axilla inspection: normal inspection of the breasts and normal inspection of the axillae Breast/axilla palpation: normal palpation of the breasts, normal palpation of the axillae and no axillary lymphadenopathy Resp Effort & Inspection: normal respiratory effort Auscultation: clear to auscultation bilaterally Percussion: percussion normal Cardio Palpation: normal PMI Rate: regular rate Rhythm: regular rhythm Heart sounds: no murmurs and no rubs Peripheral pulses: Peripheral pulses 2+ throughout GI Inspection: Yes normal to inspection Palpation (GI): Soft to palpation, nontender, no guarding, not rigid and No hepatosplenomegaly present Percussion: Yes normal to percussion Auscultation: normal bowel sounds Rectal Exam - Female: deferred General: Yes bladder normal to palpation External Female Exam: No lesion Speculum Exam - Vagina: normal appearance of the vagina, normal palpation, normal vaginal discharge and not erythematous Speculum Exam - Cervix: normal appearance of the cervix and normal palpation Bimanual exam- vagina & uterus: normal bimanual exam, normal palpation, bladder normal to palpation, consistency normal, normal palpation and enlarged Bimanual Exam- Adnexa, other: normal adnexae, no masses and no tenderness Assessment & Plan Assessment & Plan (1) Well woman exam: Code(s): Z01.419 - Encounter for gynecological examination (general) (routine) without abnormal findings Plan: Cotesting done. Mammogram done recently, results still pending. Counseled the patient about the recommended dietary allowance of 1000 mg of Calcium & 600 IU of vitamin D. The patient was instructed to perform monthly self-breast exams and to schedule an annual exam in a year; All questions answered and the patient verbalized understanding. Instructed the patient to schedule annual exam in a year (2) Enlarged uterus: Code(s): N85.2 - Hypertrophy of uterus Plan: Discussed with the patient the findings on pelvic exam, enlarged uterus. Pelvic ultrasound ordered. Instructions given the patient to schedule an ultrasound follow-up appointment within 2 weeks. Coding Level of Care Code New Pt Prev Care 40-64y(94747) Diagnoses Well woman exam Z01.419 Enlarged uterus N85.2
[2023-03-21 09:24] VITALS: BP 120/82; BMI 37.5
== END 2023-03-21 09:55 | disposition home or self-care (01) ==
PROVIDERS: PCP Internal Medicine; Visit Provider Obstetrics & Gynecology
DX: Z01.419 Encounter for gynecological examination (general) (routine) without abnormal findings (principal); N85.2 Hypertrophy of uterus
CPT/HCPCS: 99386

== ENCOUNTER 2023-03-27 15:10 | Outpatient (AMB) | payer OTHER, SELFPAY ==
--- NOTE | 2023-03-27 15:15 | AM.OFFVISNUR ---
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
[2023-03-27 15:24] VITALS: BP 128/72; PULSE 74; O2SAT 96
--- NOTE | 2023-03-27 15:25 | AM.OFFVISNUR ---
Intake Vital Signs 03/27/23 15:24 BP 128/72 Blood Pressure Location Lt radial Position Sitting Pulse 74 Pulse Source Pulse Oximeter Pulse Oximetry (%) 96 Oxygen Delivery Method Room Air Intake Visit Reasons: QUENTIN INJ Allergies Penicillins [PCN] Allergy (Unknown, Verified 03/27/23 15:16) UNKNOWN ethinyl estradiol [Sprintec (28)] Adverse Reaction (Intermediate, Verified 03/27/23 15:16) headache- all hormonal controls norgestimate [Sprintec (28)] Adverse Reaction (Intermediate, Verified 03/27/23 15:16) headache- all hormonal controls Results AMB Test Urine AMB Test Urine Negative Last Edit by Chloe Rowley CMA on 03/27/23 15:28 Coding Assessment & Plan Assessment & Plan Orders: Orders AMB HCG Urine Test Today Z32.01 - Encounter for test, result positive, Z32.02 - Encounter for test, result negative
== END 2023-03-27 15:58 | disposition home or self-care (01) ==
PROVIDERS: PCP Internal Medicine
DX: Z32.02 Encounter for pregnancy test, result negative (principal); Z32.01 Encounter for pregnancy test, result positive; F10.20 Alcohol dependence, uncomplicated
CPT/HCPCS: J2315

== ENCOUNTER → 2023-03-27 15:10 | Outpatient (BNVA) | payer OTHER, SELFPAY | PROVIDERS: PCP Internal Medicine | DX: F10.20 Alcohol dependence, uncomplicated (principal) | CPT/HCPCS: 81025; 96372 ==

== ENCOUNTER 2023-04-04 15:03 | Outpatient (REF) | payer OTHER, SELFPAY ==
--- NOTE | ~2023-04-04 | US_ITS ---
EXAMINATION: US PELVIS CLINICAL INFORMATION: Hypertrophy of the uterus. COMPARISON: No prior pelvic ultrasound. TECHNIQUE: Ultrasound of the pelvis is performed using both transabdominal and transvaginal transducers along with Doppler. Transvaginal imaging is performed due to inadequate visualization transabdominally. FINDINGS: Uterus: The uterus is retroflexed and measures 12.6 x 5.2 x 4.7 cm. The double wall endometrial thickness is 8 mm. The uterus appears smooth. Limited evaluation of the uterus on transvaginal images due to positioning. Cannot confirm or exclude polypoid lesion in the lower uterine segment/cervix. Small amount of fluid in the endometrial and cervical canals, nonspecific. Subcentimeter cervical nabothian cysts. Adnexa: Both ovaries are visualized. There is normal color flow to the adnexa. There is no ovarian torsion. There is no pelvic ascites or fluid collection. Right ovary measures 2.1 x 1.1 x 1.7 cm. Estimated volume of 2 cc. Left ovary measures 3.4 x 2.0 x 2.5 cm and contains follicles. Estimated volume of 9 cc. Trace fluid in the cul-de-sac, nonspecific. US/US pelvic and transvaginal IMPRESSION: Retroflexed uterus, limiting evaluation. Cannot confirm or exclude polypoid lesion in the lower uterine segment/cervix.
== END 2023-04-04 15:04 | disposition home or self-care (01) ==
LOC: HO.US 15:03
PROVIDERS: PCP Internal Medicine; Visit Provider Obstetrics & Gynecology
DX: N85.2 Hypertrophy of uterus (principal)
CPT/HCPCS: 76830; 76856

== ENCOUNTER 2023-04-26 15:42 | Outpatient (AMB) | payer OTHER, SELFPAY ==
[2023-04-26 16:07] VITALS: BP 132/94; PULSE 88; O2SAT 97
--- NOTE | 2023-04-26 16:07 | MHC.AM.SUB ---
Intake Vital Signs 04/26/23 16:07 BP 132/94 H Blood Pressure Location Rt brachial Position Sitting Pulse 88 Pulse Source Pulse Oximeter Pulse Oximetry (%) 97 Oxygen Delivery Method Room Air Intake Visit Reasons: Kalyani Inj Allergies Penicillins [PCN] Allergy (Unknown, Verified 03/27/23 15:16) UNKNOWN ethinyl estradiol [Sprintec (28)] Adverse Reaction (Intermediate, Verified 03/27/23 15:16) headache- all hormonal controls norgestimate [Sprintec (28)] Adverse Reaction (Intermediate, Verified 03/27/23 15:16) headache- all hormonal controls PFSH Medical History Alcohol use disorder Hemorrhoids with complication Depression Obesity (BMI 30-39.9) Surgical History H/O hemorrhoidectomy (09/26/22) S/P section History of laparoscopic cholecystectomy (~07/2017) Hx of myringotomy Family History Father Hypertension Diabetes Mother Diabetes Hypertension Myocardial infarction, Onset Age: 65 Maternal Grandmother Myocardial infarction, Onset Age: 50 Sister Devic's disease Social History (Updated 03/21/23 @ 09:27 by Amanda Villa CMA) Household Members: Children Housing: House Alcohol intake: former Patient Tobacco Use Status: Former Tobacco user Quit Date: 114 days ago from 02/21/2023 Tobacco use type: Cigarette Cigarette Packs Per Day: 0 Cigarettes Per Day: 1 e-Cigarette/Vaping Use: Never Used Second Hand Smoke Exposure: No service: No 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: No Sexual orientation: Straight/Heterosexual Gender identity: Female Cognitive needs: No Hearing needs: No Vision needs: Yes Female Reproductive History Menstrual Age of Menarche: 11 Office Meds Vivitrol 380 mg intramuscular suspension,extended release Performing Provider: Kylee Vora CNP Performing Location: [facility] Administered by: Verónica Sears RN on 04/26/23 16:41 Dose Route Admin Location Dispensed Lot Number Expiration Date [facility] Lead Performance Support Analyst 380 mg IM LG 380 mg [id number] 06/24/25 91972-142-38 [employer] Comments: Assessed for s/s infection from previous injection site-none noted. Pt educated to monitor injection site for s/s of infection, pt verbalized understanding. Pt tolerated injection. Assessment & Plan Assessment & Plan Orders: Orders AMB Naltrexone Injection Today F10.20 - Alcohol dependence, uncomplicated Medications: New bupropion HCl (Wellbutrin XL) 300 mg PO QAM 90 tabs 0RF Refilled nicotine (polacrilex) 4 mg buccal Q8H PRN 108 ea 2RF nicotine cravings naltrexone 50 mg PO DAILY 90 tabs 3RF Discontinued bupropion HCl (Wellbutrin XL) Discontinued Reason: Doctor's Order 150 mg PO QAM 30 tabs 3RF Coding
--- NOTE | 2023-04-26 16:49 | A.OFFVIS_ITS ---
Intake Vital Signs 04/26/23 16:07 BP 132/94 H Blood Pressure Location Rt brachial Position Sitting Pulse 88 Pulse Source Pulse Oximeter Pulse Oximetry (%) 97 Oxygen Delivery Method Room Air Intake Visit Reasons: Kalyani Inj Allergies Penicillins [PCN] Allergy (Unknown, Verified 03/27/23 15:16) UNKNOWN ethinyl estradiol [Sprintec (28)] Adverse Reaction (Intermediate, Verified 03/27/23 15:16) headache- all hormonal controls norgestimate [Sprintec (28)] Adverse Reaction (Intermediate, Verified 03/27/23 15:16) headache- all hormonal controls HPI Kalyani Inj HPI Details Patient presents for follow up and vivitrol injection Continues to do well with recovery-no alcohol for 5 months Working overnights and attending school concerned about her mood and seasonal depression she usually experiences as winter approached Discussed methods for addressing this including light therapy and exercise. Ultimately, patient requesting to increase Wellbutrin dose as she is starting to experience some sx associated with her depression and she does not want them to worsen. [facility] Medical History Alcohol use disorder Hemorrhoids with complication Depression Obesity (BMI 30-39.9) Surgical History H/O hemorrhoidectomy (09/26/22) S/P section History of laparoscopic cholecystectomy (~07/2017) Hx of myringotomy Family History Father Hypertension Diabetes Mother Diabetes Hypertension Myocardial infarction, Onset Age: 65 Maternal Grandmother Myocardial infarction, Onset Age: 50 Sister Devic's disease Social History (Updated 03/21/23 @ 09:27 by Amanda Villa CMA) Household Members: Children Housing: House Alcohol intake: former Patient Tobacco Use Status: Former Tobacco user Quit Date: 114 days ago from Tobacco use type: Cigarette Cigarette Packs Per Day: 0 Cigarettes Per Day: 1 e-Cigarette/Vaping Use: Never Used Second Hand Smoke Exposure: No service: No 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: No Sexual orientation: Straight/Heterosexual Gender identity: Female Cognitive needs: No Hearing needs: No Vision needs: Yes Female Reproductive History Menstrual Age of Menarche: 11 Review of Systems Const Reports as per HPI Physical Exam Vital Signs: Last Vital Signs Pulse 88 04/26/23 16:07 BP 132/94 H 04/26/23 16:07 Pulse Ox 97 04/26/23 16:07 Oxygen Delivery Method Room Air 04/26/23 16:07 Const General: cooperative, healthy appearing, comfortable, well developed and alert Nutritional Appearance: well nourished Orientation/consciousness: patient oriented x3 Limitations: no limitations Neuro General: patient oriented x3 Psych Appearance: well kempt Speech and movement: Normal speech and movement present Affect: normal affect Attitude: cooperative Thought process: Normal thought process present Thought content: Normal thought content present Insight: Good insight present (Psych) Judgement: Good judgement present (Psych) Office Meds Vivitrol 380 mg intramuscular suspension,extended release Performing Provider: Kylee Vora CNP Performing Location: [facility] Administered by: Verónica Sears RN on 04/26/23 16:41 Dose Route Admin Location Dispensed Lot Number Expiration Date [facility] Tool Grinder Operator 380 mg IM LG 380 mg 2023-3007T 06/24/25 [id number] [employer] Comments: Assessed for s/s infection from previous injection site-none noted. Pt educated to monitor injection site for s/s of infection, pt verbalized understanding. Pt tolerated injection. Assessment & Plan Assessment & Plan (1) Alcohol use disorder, moderate, dependence: Code(s): F10.20 - Alcohol dependence, uncomplicated Plan: * Tolerated injection * Medications refilled and wellbutrin dose increased to 300mg QD * Follow-up 4 weeks Orders: Orders AMB Naltrexone Injection 04/26/23 F10.20 - Alcohol dependence, uncomplicated AMB HCG Urine Test 04/26/23 F10.20 - Alcohol dependence, uncomplicated Medications: New bupropion HCl (Wellbutrin XL) 300 mg PO QAM 90 tabs 0RF Refilled nicotine (polacrilex) 4 mg buccal Q8H PRN 108 ea 2RF nicotine cravings naltrexone 50 mg PO DAILY 90 tabs 3RF Discontinued bupropion HCl (Wellbutrin XL) Discontinued Reason: Doctor's Order 150 mg PO QAM 30 tabs 3RF Coding Level of Care Code Est Pt Level 3 (93565) Diagnoses Alcohol use disorder, moderate, dependence F10.20
== END 2023-04-26 16:34 | disposition home or self-care (01) ==
PROVIDERS: PCP Internal Medicine; Visit Provider Nurse Practitioner Psychiatric/Mental Health
DX: F10.20 Alcohol dependence, uncomplicated (principal)
CPT/HCPCS: 99213

== ENCOUNTER → 2023-04-26 15:42 | Outpatient (BNVA) | payer OTHER, SELFPAY | PROVIDERS: PCP Internal Medicine; Visit Provider Nurse Practitioner Family | DX: F10.20 Alcohol dependence, uncomplicated (principal); Z79.899 Other long term (current) drug therapy | CPT/HCPCS: 96372; 99212; J2315 ==

== ENCOUNTER 2023-05-03 09:34 | Outpatient (AMB) | payer OTHER, SELFPAY ==
--- NOTE | 2023-05-03 09:47 | AM.OFFVISNUR ---
Intake Intake Visit Reasons: Flu Shot Allergies Penicillins [PCN] Allergy (Unknown, Verified 03/27/23 15:16) UNKNOWN ethinyl estradiol [Sprintec (28)] Adverse Reaction (Intermediate, Verified 03/27/23 15:16) headache- all hormonal controls norgestimate [Sprintec (28)] Adverse Reaction (Intermediate, Verified 03/27/23 15:16) headache- all hormonal controls Office Procedures Flu Questionnaire Does the patient have a severe egg allergy?: No Does the patient have severe life threatening allergies?: No Does the patient have a fever or illness today?: No Has the patient ever had Guillain-[place] Syndrome?: No Has the patient ever had any past reaction to a flu shot?: No Immunizations flu vacc [id number] 6mos up(PF) 60 mcg(15 mcgx4)/0.5 mL IM syringe Performing Provider: Henri Mathew MD [facility] Administered by: Erendira Gastelum RN on 05/03/23 09:47 Dose Route Admin Location Dispensed Lot Number Expiration Date [employer] Collection Support Specialist 0.5 mL IM Left Deltoid 0.5 mL [id number] 12/23/23 46797-794-43 [employer] VIS Given Date VIS Provided VIS Publication Date 05/03/23 Single Vaccine 21 Eligibility Eligibility Date Funding Source Not [facility] Eligible 05/03/23 Private Coding Assessment & Plan Assessment & Plan Orders: Orders Influenza [id number] Immunization Today Z23 - Encounter for immunization
== END 2023-05-03 09:47 | disposition home or self-care (01) ==
PROVIDERS: PCP Internal Medicine; Visit Provider Internal Medicine
DX: Z23 Encounter for immunization (principal)
CPT/HCPCS: 90471; 90686

== ENCOUNTER 2023-05-24 15:21 | Outpatient (AMB) | payer OTHER, SELFPAY ==
--- NOTE | 2023-05-24 15:56 | MHC.AM.SUB ---
Intake Intake Visit Reasons: Kalyani Inj Allergies Penicillins [PCN] Allergy (Unknown, Verified 03/27/23 15:16) UNKNOWN ethinyl estradiol [Sprintec (28)] Adverse Reaction (Intermediate, Verified 03/27/23 15:16) headache- all hormonal controls norgestimate [Sprintec (28)] Adverse Reaction (Intermediate, Verified 03/27/23 15:16) headache- all hormonal controls HPI Kalyani Inj HPI Details Pt presents for vivitrol injection Denies any concerns with medication or side effects Has been in recovery for nearly 7 months Future thinking, talking about how she is doing well in school and is working towards getting into nursing school [facility] Medical History Alcohol use disorder Hemorrhoids with complication Depression Obesity (BMI 30-39.9) Surgical History H/O hemorrhoidectomy (09/26/22) S/P section History of laparoscopic cholecystectomy (~07/2017) Hx of myringotomy Family History Father Hypertension Diabetes Mother Diabetes Hypertension Myocardial infarction, Onset Age: 65 Maternal Grandmother Myocardial infarction, Onset Age: 50 Sister Devic's disease Social History (Updated 03/21/23 @ 09:27 by Amanda Villa CMA) Household Members: Children Housing: House Alcohol intake: former Patient Tobacco Use Status: Former Tobacco user Quit Date: 114 days ago from 02/21/2023 Tobacco use type: Cigarette Cigarette Packs Per Day: 0 Cigarettes Per Day: 1 e-Cigarette/Vaping Use: Never Used Second Hand Smoke Exposure: No service: No 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: No Sexual orientation: Straight/Heterosexual Gender identity: Female Cognitive needs: No Hearing needs: No Vision needs: Yes Female Reproductive History Menstrual Age of Menarche: 11 Review of Systems Const Reports as per HPI Physical Exam Const General: cooperative, healthy appearing and no acute distress Resp Effort & Inspection: normal respiratory effort Skin General skin exam: no rashes or lesions noted Psych Appearance: grossly normal Mental Status: mental status grossly normal Speech and movement: Normal speech and movement present Affect: normal affect Thought content: Normal thought content present Insight: Good insight present (Psych) Judgement: Good judgement present (Psych) Office Meds Vivitrol 380 mg intramuscular suspension,extended release Performing Provider: Janki Garcias NP Performing Location: [facility] Administered by: Janki Garcias NP on 05/24/23 16:05 Dose Route Admin Location Dispensed Lot Number Expiration Date [employer] Water Quality Assistant 380 mg IM Rg 380 mg [id number] 06/24/25 [id number] youwho Comments: Pt tolerated injection well, encouraged to call [facility] with any questions or concerns. Assessment & Plan Assessment & Plan (1) Alcohol use disorder, moderate, dependence: Code(s): F10.20 - Alcohol dependence, uncomplicated Plan: Pt tolerating injection Follow up in 4 weeks. Call [facility] with questions, concerns, or need an earlier appt Orders: Orders AMB Naltrexone Injection Patient Supplied 05/24/23 F10.20 - Alcohol dependence, uncomplicated Coding Level of Care Code Est Pt Level 3 (72040) Diagnoses Alcohol use disorder, moderate, dependence F10.20
== END 2023-05-24 16:25 | disposition home or self-care (01) ==
PROVIDERS: PCP Internal Medicine; Visit Provider Nurse Practitioner Family
DX: F10.20 Alcohol dependence, uncomplicated (principal)
CPT/HCPCS: 99213

== ENCOUNTER → 2023-05-24 15:21 | Outpatient (BNVA) | payer OTHER, SELFPAY | PROVIDERS: PCP Internal Medicine | DX: F10.20 Alcohol dependence, uncomplicated (principal); Z79.899 Other long term (current) drug therapy | CPT/HCPCS: 96372; 99212; J2315 ==

== ENCOUNTER 2023-06-14 12:25 | Outpatient (AMB) | payer OTHER, SELFPAY ==
[2023-06-14 12:34] VITALS: BP 130/84; BMI 37.5
--- NOTE | 2023-06-14 12:34 | MHC.OFFVIS ---
Intake Vital Signs 06/14/23 12:34 Height 5 ft 8.5 in Weight 250 lb BMI 37.5 BP 130/84 Intake Visit Reasons: US follow up Arabic Translator Required: No Aircraft Delivery Checker: Aircraft Delivery Checker Present Allergies Penicillins [PCN] Allergy (Unknown, Verified 06/14/23 12:34) UNKNOWN ethinyl estradiol [Sprintec (28)] Adverse Reaction (Intermediate, Verified 06/14/23 12:34) headache- all hormonal controls norgestimate [Sprintec (28)] Adverse Reaction (Intermediate, Verified 06/14/23 12:34) headache- all hormonal controls Is last menstrual period known: Yes Last menstrual period: 05/19/23 Post menopausal: No Patient : No Do you need a note to return to daycare/school/sports/work: Yes (for surgery on sunday) HPI HPI Comments History of Present Illness Details Presenting for follow-up ultrasound. Pelvic ultrasound done in 04/16 showed the following: The uterus is retroflexed and measures 12.6 x 5.2 x 4.7 cm. The double wall endometrial thickness is 8 mm. The uterus appears smooth. Limited evaluation of the uterus on transvaginal images due to positioning. Cannot confirm or exclude polypoid lesion in the lower uterine segment/cervix. Small amount of fluid in the endometrial and cervical canals, nonspecific. Subcentimeter cervical nabothian cysts. Adnexa: Both ovaries are visualized. There is normal color flow to the adnexa. There is no ovarian torsion. There is no pelvic ascites or fluid collection. Right ovary measures 2.1 x 1.1 x 1.7 cm. Estimated volume of 2 cc. Left ovary measures 3.4 x 2.0 x 2.5 cm and contains follicles. Estimated volume of 9 cc. Trace fluid in the cul-de-sac, nonspecific. [facility] Medical History Alcohol use disorder Hemorrhoids with complication Depression Obesity (BMI 30-39.9) Surgical History H/O hemorrhoidectomy (09/26/22) S/P section History of laparoscopic cholecystectomy (~07/2017) Hx of myringotomy Family History Father Hypertension Diabetes Mother Diabetes Hypertension Myocardial infarction, Onset Age: 65 Maternal Grandmother Myocardial infarction, Onset Age: 50 Sister Devic's disease Social History Household Members: Children Housing: House Alcohol intake: former Patient Tobacco Use Status: Former Tobacco user Quit Date: 114 days ago from 02/21/2023 Tobacco use type: Cigarette Cigarette Packs Per Day: 0 Cigarettes Per Day: 1 e-Cigarette/Vaping Use: Never Used Second Hand Smoke Exposure: No service: No 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: No Sexual orientation: Straight/Heterosexual Gender identity: Female Cognitive needs: No Hearing needs: No Vision needs: Yes Female Reproductive History Menstrual Age of Menarche: 11 Date of last menstrual period: 05/19/23 control method: none Total pregnancies: 2 Full term: 2 Date of last pap smear: 03/22/23 (negative) Review of Systems Card Reports as per HPI and Reports no additional complaints Resp Reports as per HPI and Reports no additional complaints GI Reports as per HPI and Reports no additional complaints Reports as per HPI Physical Exam Vital Signs: Last Vital Signs BP 130/84 06/14/23 12:34 BMI result Body Mass Index 37.5 Const General: cooperative, healthy appearing and comfortable Chest Chest palpation & inspection: normal inspection of the chest and normal palpation of entire chest wall Breast/axilla inspection: normal inspection of the breasts and normal inspection of the axillae Breast/axilla palpation: normal palpation of the breasts, normal palpation of the axillae and no axillary lymphadenopathy Resp Effort & Inspection: normal respiratory effort Auscultation: clear to auscultation bilaterally Percussion: percussion normal Cardio Palpation: normal PMI Rate: regular rate Rhythm: regular rhythm Heart sounds: no murmurs and no rubs Peripheral pulses: Peripheral pulses 2+ throughout GI Inspection: Yes normal to inspection Palpation (GI): Soft to palpation, nontender, no guarding, not rigid and No hepatosplenomegaly present Percussion: Yes normal to percussion Auscultation: normal bowel sounds Rectal Exam - Female: deferred Assessment & Plan Assessment & Plan (1) Abnormal endometrial ultrasound: Comment: Nonvisualization of the uterine segment cannot confirm or exclude polyp by ultrasound Code(s): R93.5 - Abnormal findings on diagnostic imaging of other abdominal regions, including retroperitoneum Plan: Discussed with the patient the results of the ultrasound with nonvisualization of the lower uterine segment, cannot exclude or confirm polypoid lesion. Options of treatment discussed with the patient include repeat ultrasound versus hysteroscopy D&C possible polypectomy. All pros and cons, risks and benefits of each were discussed the patient, the patient decided to proceed with hysteroscopy D&C possible polypectomy/myomectomy. Discussed with the patient the procedure , all benefits and risks including but not limited to inability to complete the procedure , bleeding, infection, possible need for blood transfusion with all its risk ( HIV,syphilis, Hepatitis, anaphylaxis shock, others..), injury to bladder, rectum, possible need for laparoscopy/laparotomy or hysterectomy. The patient verbalized understanding and signed the consent. Instructions given the patient to schedule a 2 week postoperative appointment Coding Level of Care Code Est Pt Level 3 (28788) Diagnoses Abnormal endometrial ultrasound R93.5
== END 2023-06-14 14:12 | disposition home or self-care (01) ==
LOC: HO.HWS 12:25
PROVIDERS: PCP Internal Medicine; Visit Provider Obstetrics & Gynecology
DX: R93.5 Abnormal findings on diagnostic imaging of other abdominal regions, including retroperitoneum (principal)
CPT/HCPCS: 99213

== ENCOUNTER → 2023-06-14 12:25 | Outpatient (BNVA) | payer OTHER, SELFPAY | PROVIDERS: PCP Internal Medicine; Visit Provider Obstetrics & Gynecology | DX: R93.5 Abnormal findings on diagnostic imaging of other abdominal regions, including retroperitoneum (principal) | CPT/HCPCS: 99212 ==

== ENCOUNTER 2023-06-21 09:22 | Outpatient (AMB) | payer OTHER, SELFPAY ==
--- NOTE | 2023-06-21 09:31 | AM.OFFVISNUR ---
Intake Vital Signs 06/21/23 09:38 BP 122/78 Blood Pressure Location Lt radial Position Sitting Pulse 88 Pulse Source Pulse Oximeter Pulse Oximetry (%) 99 Oxygen Delivery Method Room Air Intake Visit Reasons: Kalyani Inj Intake Note: the patient presents for a kalyani inj Hydro Plant Operator Required: No Allergies Penicillins [PCN] Allergy (Unknown, Verified 06/21/23 09:39) UNKNOWN ethinyl estradiol [Sprintec (28)] Adverse Reaction (Intermediate, Verified 06/21/23 09:39) headache- all hormonal controls norgestimate [Sprintec (28)] Adverse Reaction (Intermediate, Verified 06/21/23 09:39) headache- all hormonal controls Do you need a note to return to daycare/school/sports/work: No Nursing Note Met with pt for AUD follow up and Vivitrol injection. Pt reports over 230 days in recovery. Utilizes family support, Facebook, God, stays busy with school. 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 Pt reports holidays went well, no alcohol cravings. Pt going to [place] for New Year's, does not anticipate any difficulty with maintaining recovery. Pt positive and future oriented. Office Meds Vivitrol 380 mg intramuscular suspension,extended release Performing Provider: Janki Garcias NP Performing Location: [facility] Administered by: Mely Farris on 06/21/23 10:08 Dose Route Admin Location Dispensed Lot Number Expiration Date [facility] Open Winder 380 mg IM LG 380 mg 2023-1020T 08/22/25 [id number] [employer] Comments: Pt tolerated injection well. Educated on signs/symptoms of infection, denies questions or concerns. Encouraged to call the [facility] if needed. Results AMB Test Urine AMB Test Urine Negative Last Edit by Chloe Rowley CMA on 06/21/23 09:40 Coding Assessment & Plan Assessment & Plan Orders: Orders AMB HCG Urine Test Today Z32.01 - Encounter for test, result positive, Z32.02 - Encounter for test, result negative AMB Naltrexone Injection Patient Supplied Today F10.20 - Alcohol dependence, uncomplicated
[2023-06-21 09:38] VITALS: BP 122/78; PULSE 88; O2SAT 99
== END 2023-06-21 10:11 | disposition home or self-care (01) ==
PROVIDERS: PCP Internal Medicine
DX: Z32.02 Encounter for pregnancy test, result negative (principal); Z32.01 Encounter for pregnancy test, result positive; F10.20 Alcohol dependence, uncomplicated

== ENCOUNTER → 2023-06-21 09:22 | Outpatient (BNVA) | payer OTHER, SELFPAY | PROVIDERS: PCP Internal Medicine | DX: F10.20 Alcohol dependence, uncomplicated (principal); Z32.02 Encounter for pregnancy test, result negative; Z98.890 Other specified postprocedural states | CPT/HCPCS: 81025; 96372; J2315 ==

== ENCOUNTER 2023-07-13 07:21 | Day surgery (SDC) | payer OTHER, SELFPAY ==
[2023-07-10 13:53] VITALS: BMI 37.5
--- NOTE | 2023-07-11 10:39 | P.CONAN_ITS ---
Documented by User: Kathy Farr NP 07/11/23 10:40 HPI - Anesthesia Eval Consult details Narrative: 42yo F for D&C Hysteroscopy,poss myomectomy,poss polypectomy PMFSH Active Problems Active Problems: All Active Problems (Updated 06/14/23 @ 12:55 by David David MD) Abnormal endometrial ultrasound (Acute) Enlarged uterus (Acute) Well woman exam (Acute) Hemorrhoids (Acute) Alcohol use disorder, moderate, dependence (Acute) Anxiety (Acute) Flu-like symptoms (Acute) Annual physical exam (Acute) Hemorrhoids with complication (Acute) Depression (Acute) Obesity (BMI 30-39.9) (Acute) Past Medical History Medical History Alcohol use disorder Hemorrhoids with complication Depression Obesity (BMI 30-39.9) Family History Family History Father Hypertension Diabetes Mother Diabetes Hypertension Myocardial infarction, Onset Age: 65 Maternal Grandmother Myocardial infarction, Onset Age: 50 Sister Devic's disease Family history of problems with anesthesia: No Surgical History Surgical History H/O hemorrhoidectomy (09/26/22) S/P section History of laparoscopic cholecystectomy (~07/2017) Hx of myringotomy History of Problems with Anesthesia: No Social History Social History Household Members: Children Housing: House Alcohol intake: former Patient Tobacco Use Status: Former Tobacco user Quit Date: 114 days ago from 02/21/2023 Tobacco use type: Cigarette Cigarette Packs Per Day: 0 Cigarettes Per Day: 1 e-Cigarette/Vaping Use: Never Used Second Hand Smoke Exposure: No Use of substances other than those prescribed or required for medical reasons: No Are you DNR?: No Advance Directives: No Advance Directives Information Provided: Yes service: No 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: No Sexual orientation: Straight/Heterosexual Gender identity: Female Cognitive needs: No Hearing needs: No Vision needs: Yes Meds Allergies Allergy/AdvReac Type Severity Reaction Status Date / Time Penicillins [PCN] Allergy Unknown UNKNOWN Verified 07/13/23 07:38 ethinyl estradiol AdvReac Intermediate headache- Verified 07/13/23 07:38 [Sprintec (28)] all hormonal controls norgestimate [Sprintec (28)] AdvReac Intermediate headache- Verified 07/13/23 07 :38 all hormonal controls Exam Height,Weight and Vital Signs: Height 5 ft 8.5 in Weight 113.398 kg Pertinent Lab Results Pertinent Lab Results: Laboratory Tests 03/14/23 09:19 WBC 9.8 Hgb 12.7 Hct 39.1 Plt Count 442 H Sodium 141 Potassium 4.0 Chloride 105 Carbon Dioxide 27 BUN 12 Creatinine 0.99 Assessment and Plan Assessment Anesthesia Assessment: Chart Reviewed Final Anesthetic Review Family History of Problems with Anesthesia: No History of Problems with Anesthesia: No Documented by User: Mahesh Ibarra MD 07/13/23 09:07 [facility] Past Medical History Medical History Alcohol use disorder Hemorrhoids with complication Depression Obesity (BMI 30-39.9) Patient : No Family History Family History Father Hypertension Diabetes Mother Diabetes Hypertension Myocardial infarction, Onset Age: 65 Maternal Grandmother Myocardial infarction, Onset Age: 50 Sister Devic's disease Surgical History Surgical History H/O hemorrhoidectomy (09/26/22) S/P section History of laparoscopic cholecystectomy (~07/2017) Hx of myringotomy Social History Social History Household Members: Children Housing: House Alcohol intake: former Patient Tobacco Use Status: Former Tobacco user Quit Date: 114 days ago from 02/21/2023 Tobacco use type: Cigarette Cigarette Packs Per Day: 0 Cigarettes Per Day: 1 e-Cigarette/Vaping Use: Never Used Second Hand Smoke Exposure: No Use of substances other than those prescribed or required for medical reasons: No Are you DNR?: No Advance Directives: No Advance Directives Information Provided: Yes service: No 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: No Sexual orientation: Straight/Heterosexual Gender identity: Female Cognitive needs: No Hearing needs: No Vision needs: Yes Meds Allergies Allergy/AdvReac Type Severity Reaction Status Date / Time Penicillins [PCN] Allergy Unknown UNKNOWN Verified 07/13/23 07:38 ethinyl estradiol AdvReac Intermediate headache- Verified 07/13/23 07:38 [Sprintec (28)] all hormonal controls norgestimate [Sprintec (28)] AdvReac Intermediate headache- Verified 07/13/23 07:38 all hormonal controls Exam Airway Mallampati Class: I TM Dist: >3cm Neck ROM: Full Loose/Missing/Broken Teeth: No Heart: ok Lungs: ok Assessment and Plan Assessment Anesthesia Assessment: Anesthesia Plan Discussed Final Anesthetic Review NPO: Yes ASA Class: III Final Preanesthetic Review: No Changes in Pt Med Stat, Meds/Allgs Chart Reviewed, Consent Obtained/Reviewed and Anes Risks/Benef Reviewed Patient Risk: Intermediate Procedure Risk: Low Anesthetic Plan Anesthetic Plan: GA and Agree w/ Assess. and Plan Disposition: Standard PACU
[2023-07-13 07:43] VITALS: BMI 40.4
[2023-07-13 08:03] VITALS: BP 150/92; PULSE 74; RESP 20; TEMP 36.7; O2SAT 98
[2023-07-13 08:07] LABS: UPreg QC Valid YES; Urine Pregnancy NEGATIVE (NEGATIVE)
[2023-07-13] MEDS: Lactated Ringers 1,000 ML 100 ML IVCONT (08:17)
--- NOTE | 2023-07-13 09:05 | P.HPSUR_ITS ---
Pre-Procedural Eval Section A Date of Service: 07/13/23 The patient is an INPATIENT: No Changes since office visit: No Cold of Flu in the past 2 weeks, No New Medical Problems, No Changes in Medication and No Patient answered all questions The History & Physical has been completed within 30 days and I have reviewed it.: Yes Section B Chief Complaint: Abnormal findings on diagnostic imaging of other a Allergies: Allergies Allergy/AdvReac Type Severity Reaction Status Date / Time Penicillins [PCN] Allergy Unknown UNKNOWN Verified 07/13/23 07:38 ethinyl estradiol AdvReac Intermediate headache- Verified 07/13/23 07:38 [Sprintec (28)] all hormonal controls norgestimate [Sprintec (28)] AdvReac Intermediate headache- Verified 07/13/23 07 :38 all hormonal controls Plan Diagnosis/Plan: Unchanged I have reviewed the history and physical and performed a pertinent physical examination on my patient. No changes have occurred unless specified. Time Spent With Patient Time: Total time managing care of this patient today ____ minutes.
--- NOTE | 2023-07-13 09:33 | PM.OP ---
Brief Operative Note Date of Service: 07/13/23 Pre-op diagnosis: ? Abnormal endometrium by ultrasound Post-op diagnosis: same (Normal endometrial cavity) Procedure: Hysteroscopy D&C Surgeon: David David MD Anesthesia: GLMA Was an Steam Shovel Operating Engineer used for this Procedure?: No Estimated blood loss (mL): 0 Pathology: other (Endometrial Scrapping. ) Condition: stable Disposition: PACU
--- NOTE | 2023-07-13 09:33 | W.PM.OPN ---
Operative Note Operative Note Date of Service: 07/13/23 Narrative: Preop Diagnosis: ? Abnormal endometrium by ultrasound Operation: Diagnostic Hysteroscopy, Dilataion & Curettage Post Op Diagnosis: Normal endometrial and endocervical cavity, no evidence of pathology QBL: Minimal Anesthesia: GLMA Surgeon: David David MD It Business Systems Analyst: None Complication: None Pathology: Endometrial Scrapings Procedure: The patient was put in the dorsal lithotomy position, scrubbed, and draped in the usual manner. A sterile speculum was inserted in the patient's vagina. The anterior lip of the cervix was grasped with a single tooth tenaculum. The cervix was dilated up to 5 mm, then the scope was inserted in the patient's uterus. Inspection revealed normal endocervical & endometrial cavity with no evidence of pathology. The scope was taken out of the uterine cavity , then sharp curetting was carried on with no complications. At the end of the procedure, all instruments were taken out of the patient uterine and vaginal cavity. The single tooth tenaculum was removed and homeostasis was assured using pressure. The patient tolerated the procedure well and was transferred to the PACU in a stable condition.
[2023-07-13 09:42] VITALS: BP 152/93; PULSE 76; RESP 16; TEMP 36.1; O2SAT 99
[2023-07-13 09:47] VITALS: BP 128/45; PULSE 76; RESP 16; O2SAT 99
[2023-07-13] MEDS: Acetaminophen 325 MG TABLET 650 MG PO (09:48)
[2023-07-13 09:52] VITALS: BP 126/82; PULSE 73; RESP 16; O2SAT 99
[2023-07-13 09:57] VITALS: BP 128/87; PULSE 72; RESP 16; O2SAT 99
[2023-07-13] MEDS: Acetaminophen 325 MG TABLET PO (09:57)
[2023-07-13 10:12] VITALS: BP 144/89; PULSE 83; RESP 20; TEMP 36.2; O2SAT 99
== END 2023-07-13 10:39 | disposition home or self-care (01) ==
PROVIDERS: Nurse Practitioner; PCP Internal Medicine; Visit Provider Obstetrics & Gynecology
PROC: 0UDB8ZZ Extraction of Endometrium, Via Natural or Artificial Opening Endoscopic (ICD-10-PCS; CPT 58558; principal; 2023-07-13 09:00)
DX: R93.5 Abnormal findings on diagnostic imaging of other abdominal regions, including retroperitoneum (principal); N85.2 Hypertrophy of uterus; F10.20 Alcohol dependence, uncomplicated; E66.9 Obesity, unspecified; Z68.37 Body mass index [BMI] 37.0-37.9, adult; Z87.891 Personal history of nicotine dependence
CPT/HCPCS: 58558; 81025; 88305; J1885; J2250; J2405; J2704; J3010

== ENCOUNTER → 2023-07-13 07:21 | Outpatient (BNV) | payer OTHER, SELFPAY | PROVIDERS: PCP Internal Medicine; Visit Provider Obstetrics & Gynecology | DX: R93.5 Abnormal findings on diagnostic imaging of other abdominal regions, including retroperitoneum (principal) | CPT/HCPCS: 58558 ==

== ENCOUNTER 2023-07-19 13:29 | Outpatient (AMB) | payer OTHER, SELFPAY ==
--- NOTE | 2023-07-19 13:32 | AM.OFFVISNUR ---
Intake Vital Signs 07/19/23 13:43 BP 130/80 Blood Pressure Location Rt radial Position Sitting Pulse 83 Pulse Source Pulse Oximeter Pulse Oximetry (%) 96 Oxygen Delivery Method Room Air Intake Visit Reasons: sera inj Intake Note: the patient presents for a sera inj Allergies Penicillins [PCN] Allergy (Unknown, Verified 07/19/23 13:33) UNKNOWN ethinyl estradiol [Sprintec (28)] Adverse Reaction (Intermediate, Verified 07/19/23 13:33) headache- all hormonal controls norgestimate [Sprintec (28)] Adverse Reaction (Intermediate, Verified 07/19/23 13:33) headache- all hormonal controls Nursing Note Pt. presents for vivitrol injection.? Pt A&O x 4 pleasant and cooperative with care.? ? Pt. reports recovery is going well.? denies any breakthrough cravings/urges and also denies any SE from injection other than immediate pain following injection. 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 Pt stated that her seasonal depression feels worse, denies SI but states feeling more tired. Pt. will F/U in clinic in four weeks for check in and injection, will meet with Kylee next visit as well. Office Meds Vivitrol 380 mg intramuscular suspension,extended release Performing Provider: Kylee Vora CNP Performing Location: [facility] Administered by: Nidia Larkin RN on 07/19/23 13:36 Dose Route Admin Location Dispensed Lot Number Expiration Date [facility] Digital Performance Analyst 380 mg IM RG 380 mg [id number] 09/22/25 [id number] [employer] Results AMB Test Urine AMB Test Urine Negative Last Edit by Chloe Rowley CMA on 07/19/23 14:06 Coding Assessment & Plan Assessment & Plan Orders: Orders AMB Naltrexone Injection Patient Supplied Today F10.20 - Alcohol dependence, uncomplicated AMB HCG Urine Test Today Z32.01 - Encounter for test, result positive, Z32.02 - Encounter for test, result negative
[2023-07-19 13:43] VITALS: BP 130/80; PULSE 83; O2SAT 96
== END 2023-07-19 14:13 | disposition home or self-care (01) ==
PROVIDERS: PCP Internal Medicine
DX: Z32.02 Encounter for pregnancy test, result negative (principal); Z32.01 Encounter for pregnancy test, result positive; F10.20 Alcohol dependence, uncomplicated

== ENCOUNTER → 2023-07-19 13:29 | Outpatient (BNVA) | payer OTHER, SELFPAY | PROVIDERS: PCP Internal Medicine | DX: F10.20 Alcohol dependence, uncomplicated (principal) | CPT/HCPCS: 81025; 96372; J2315 ==

== ENCOUNTER 2023-07-25 15:15 | Outpatient (AMB) | payer OTHER, SELFPAY ==
--- NOTE | 2023-07-25 15:28 | MHC.OFFVIS ---
Intake Vital Signs 07/25/23 15:30 Height 5 ft 8.5 in Weight 250 lb BMI 37.5 BP 130/70 Intake Visit Reasons: post op Management Services Technician Required: No Information Interpreted: non-clinical & clinical Accompanied by: Self / Same As Patient Allergies Penicillins [PCN] Allergy (Unknown, Verified 07/25/23 15:32) UNKNOWN ethinyl estradiol [Sprintec (28)] Adverse Reaction (Intermediate, Verified 07/25/23 15:32) headache- all hormonal controls norgestimate [Sprintec (28)] Adverse Reaction (Intermediate, Verified 07/25/23 15:32) headache- all hormonal controls HPI HPI Comments History of Present Illness Details The patient is presenting post hysteroscopy D&C, no complaints minimal vaginal bleeding no feverishness chills or abdominal pain. The pathology showed the following: Endometrium, curettage: Mixed pattern inactive and secretory endometrium with breakdown; no atypia or hyperplasia identified. Intraoperative findings no evidence of abnormal pathology inside the endometrial cavity PFSH Medical History Alcohol use disorder Hemorrhoids with complication Depression Obesity (BMI 30-39.9) Surgical History H/O hemorrhoidectomy (09/26/22) S/P section History of laparoscopic cholecystectomy (~07/2017) Hx of myringotomy Family History Father Hypertension Diabetes Mother Diabetes Hypertension Myocardial infarction, Onset Age: 65 Maternal Grandmother Myocardial infarction, Onset Age: 50 Sister Devic's disease Social History Household Members: Children Housing: House Alcohol intake: former Patient Tobacco Use Status: Former Tobacco user Quit Date: 114 days ago from 02/21/2023 Tobacco use type: Cigarette Cigarette Packs Per Day: 0 Cigarettes Per Day: 1 e-Cigarette/Vaping Use: Never Used Second Hand Smoke Exposure: No service: No 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: No Sexual orientation: Straight/Heterosexual Gender identity: Female Cognitive needs: No Hearing needs: No Vision needs: Yes Female Reproductive History Menstrual Age of Menarche: 11 Review of Systems Const All systems reviewed & are unremarkable except as noted in HPI and below Reports as per HPI and Reports no additional complaints GI Reports no additional complaints Reports no additional complaints Physical Exam Vital Signs: Last Vital Signs BP 130/70 07/25/23 15:30 BMI result Body Mass Index 37.5 Assessment & Plan Assessment & Plan (1) Abnormal endometrial ultrasound: Comment: Nonvisualization of the uterine segment cannot confirm or exclude polyp by ultrasound Code(s): R93.5 - Abnormal findings on diagnostic imaging of other abdominal regions, including retroperitoneum Plan: Discussed with the patient the intraoperative finding, showing normal endometrial cavity with no evidence of endometrial pathology in addition to pathology of the endometrial scraping showing no evidence of endometrial hyperplasia and/or malignancy. All questions answered, the patient verbalized understanding. Coding Level of Care Code Est Pt Level 3 (68975) Diagnoses Abnormal endometrial ultrasound R93.5
[2023-07-25 15:30] VITALS: BP 130/70; BMI 37.5
== END 2023-07-25 16:21 | disposition home or self-care (01) ==
LOC: HO.HWS 15:15
PROVIDERS: PCP Internal Medicine; Visit Provider Obstetrics & Gynecology
DX: R93.5 Abnormal findings on diagnostic imaging of other abdominal regions, including retroperitoneum (principal)
CPT/HCPCS: 99213

== ENCOUNTER → 2023-07-25 15:15 | Outpatient (BNVA) | payer OTHER, SELFPAY | PROVIDERS: PCP Internal Medicine; Visit Provider Obstetrics & Gynecology | DX: R93.5 Abnormal findings on diagnostic imaging of other abdominal regions, including retroperitoneum (principal); Z98.890 Other specified postprocedural states | CPT/HCPCS: 99212 ==

== ENCOUNTER 2023-08-16 13:30 | Outpatient (AMB) | payer OTHER, SELFPAY ==
--- NOTE | 2023-08-16 13:30 | A.OFFVISCC_ITS ---
Intake Vital Signs 08/16/23 13:38 BP 140/80 H Blood Pressure Location Lt brachial Position Sitting Pulse 63 Pulse Source Pulse Oximeter Pulse Oximetry (%) 96 Oxygen Delivery Method Room Air Intake Visit Reasons: MAT Visit/ sera inj Allergies Penicillins [PCN] Allergy (Unknown, Verified 07/25/23 15:32) UNKNOWN ethinyl estradiol [Sprintec (28)] Adverse Reaction (Intermediate, Verified 07/25/23 15:32) headache- all hormonal controls norgestimate [Sprintec (28)] Adverse Reaction (Intermediate, Verified 07/25/23 15:32) headache- all hormonal controls HPI MAT Visit/ sera inj HPI Details Patient presents for follow up and Vivitrol injection Reporting she has not noticed a difference with addition of prozac in terms of depression Agreeable to increasing dose further (from 10-20mg) Discussed other strategies to address depressive sx, including getting out of the house, incorporating short walk, etc Patient also working 3rd shift--sleep schedule not ideal or adequate some days. [facility] Medical History (Updated 08/16/23 @ 17:02 by Kylee Vora CNP) Alcohol use disorder, moderate, dependence Alcohol use disorder Hemorrhoids with complication Depression Obesity (BMI 30-39.9) Surgical History H/O hemorrhoidectomy (09/26/22) S/P section History of laparoscopic cholecystectomy (~07/2017) Hx of myringotomy Family History Father Hypertension Diabetes Mother Diabetes Hypertension Myocardial infarction, Onset Age: 65 Maternal Grandmother Myocardial infarction, Onset Age: 50 Sister Devic's disease Social History Household Members: Children Housing: House Alcohol intake: former Patient Tobacco Use Status: Former Tobacco user Quit Date: 114 days ago from 02/21/2023 Tobacco use type: Cigarette Cigarette Packs Per Day: 0 Cigarettes Per Day: 1 e-Cigarette/Vaping Use: Never Used Second Hand Smoke Exposure: No service: No 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: No Sexual orientation: Straight/Heterosexual Gender identity: Female Cognitive needs: No Hearing needs: No Vision needs: Yes Female Reproductive History Menstrual Age of Menarche: 11 Review of Systems Const Reports as per HPI and Reports lethargy Psych Reports depression and Reports anhedonia Physical Exam Vital Signs: Last Vital Signs Pulse 63 08/16/23 13:38 BP 140/80 H 08/16/23 13:38 Pulse Ox 96 08/16/23 13:38 Oxygen Delivery Method Room Air 08/16/23 13:38 Const General: cooperative, healthy appearing and no acute distress Limitations: no limitations Psych Appearance: well kempt Speech and movement: Normal speech and movement present Affect: normal affect Attitude: cooperative Thought process: Normal thought process present Thought content: Normal thought content present Insight: Good insight present (Psych) Judgement: Good judgement present (Psych) Office Meds Vivitrol 380 mg intramuscular suspension,extended release Performing Provider: Kylee Vora CNP Performing Location: [facility] Administered by: Nidia Larkin RN on 08/16/23 13:46 Dose Route Admin Location Dispensed Lot Number Expiration Date [facility] Security Management Specialist 380 mg IM 380 mg 2023-3025T 10/22/25 [id number] [email or web address] Comments: Patient tolerated with no signs or symptoms of reaction. Will call [facility] with concerns or questions. Results AMB Test Urine AMB Test Urine Negative Last Edit by Nidia Larkin RN on 4 13:45 Results Reviewed Results Reviewed: Laboratory Last Values Tst Clinic Negative 08/16/23 13:31 Assessment & Plan Assessment & Plan (1) Alcohol use disorder, moderate, in sustained remission: Code(s): F10.21 - Alcohol dependence, in remission Plan: * tolerated injection * relapse prevention discussion (2) Depression: Code(s): F32.9 - Major depressive disorder, single episode, unspecified Qualifiers: Active/Remission status: currently active Depression Type: major depressive disorder Major depression episode severity: unspecified Major depression recurrence: recurrent Qualified Code(s): F33.9 - Major depressive disorder, recurrent, unspecified Plan: * increase fluoxeting to 20mg QD * follow up 2 weeks TH to check in regarding increse Orders: Orders AMB HCG Urine Test 08/16/23 F10.20 - Alcohol dependence, uncomplicated AMB Naltrexone Injection Patient Supplied ([place]) 08/16/23 F10.20 - Alcohol dependence, uncomplicated Medications: New fluoxetine 20 mg PO DAILY 30 caps 0RF Refilled hydroxyzine HCl 50 mg PO BID PRN 60 tabs 3RF for anxiety nicotine (polacrilex) 4 mg buccal Q8H PRN 108 ea 2RF nicotine cravings Discontinued fluoxetine Discontinued Reason: Doctor's Order 10 mg PO DAILY 30 caps 0RF Coding Level of Care Code Est Pt Level 4 (67912) Diagnoses Alcohol use disorder, moderate, in sustained remission F10.21 Episode of recurrent major depressive disorder, unspecified depression episode severity F33.9 Active/Remission status: currently active Depression Type: major depressive disorder Major depression episode severity: unspecified Major depression recurrence: recurrent
[2023-08-16 13:38] VITALS: BP 140/80; PULSE 63; O2SAT 96
== END 2023-08-16 14:09 | disposition home or self-care (01) ==
PROVIDERS: PCP Internal Medicine; Visit Provider Nurse Practitioner Psychiatric/Mental Health
DX: F10.21 Alcohol dependence, in remission (principal); F33.9 Major depressive disorder, recurrent, unspecified
CPT/HCPCS: 99214

== ENCOUNTER → 2023-08-16 13:30 | Outpatient (BNVA) | payer OTHER, SELFPAY | PROVIDERS: PCP Internal Medicine; Visit Provider Nurse Practitioner Psychiatric/Mental Health | DX: F10.21 Alcohol dependence, in remission (principal); F33.9 Major depressive disorder, recurrent, unspecified; Z32.02 Encounter for pregnancy test, result negative; Z79.899 Other long term (current) drug therapy | CPT/HCPCS: 81025; 96372; 99212; J2315 ==

== ENCOUNTER 2023-08-29 12:56 | Outpatient (AMB) | payer OTHER, SELFPAY ==
--- NOTE | 2023-08-29 12:56 | A.OFFVISCC_ITS ---
Intake Intake Visit Reasons: MAT Allergies Penicillins [PCN] Allergy (Unknown, Verified 07/25/23 15:32) UNKNOWN ethinyl estradiol [Sprintec (28)] Adverse Reaction (Intermediate, Verified 07/25/23 15:32) headache- all hormonal controls norgestimate [Sprintec (28)] Adverse Reaction (Intermediate, Verified 07/25/23 15:32) headache- all hormonal controls HPI MAT HPI Details Patient presents for follow up via teleheath Feels like increase in Medication dose has been helpful (10mg-20mg fluoxetine) she reports things don't feel like a chore as much as they were before Overall improved mood and motivation [facility] Medical History (Updated 08/29/23 @ 13:16 by Kylee Vora CNP) Alcohol use disorder, moderate, dependence Alcohol use disorder Hemorrhoids with complication Depression Obesity (BMI 30-39.9) Surgical History H/O hemorrhoidectomy (09/26/22) S/P section History of laparoscopic cholecystectomy (~07/2017) Hx of myringotomy Family History Father Hypertension Diabetes Mother Diabetes Hypertension Myocardial infarction, Onset Age: 65 Maternal Grandmother Myocardial infarction, Onset Age: 50 Sister Devic's disease Social History Household Members: Children Housing: House Alcohol intake: former Patient Tobacco Use Status: Former Tobacco user Quit Date: 114 days ago from 02/21/2023 Tobacco use type: Cigarette Cigarette Packs Per Day: 0 Cigarettes Per Day: 1 e-Cigarette/Vaping Use: Never Used Second Hand Smoke Exposure: No service: No 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: No Sexual orientation: Straight/Heterosexual Gender identity: Female Cognitive needs: No Hearing needs: No Vision needs: Yes Female Reproductive History Menstrual Age of Menarche: 11 Review of Systems Const Reports as per HPI Assessment & Plan Assessment & Plan (1) Major depressive disorder, recurrent, moderate: Code(s): F33.1 - Major depressive disorder, recurrent, moderate Plan: * no change to medication * follow up already in place for [employer] Telehealth Telehealth Location of provider rendering services: practice address Location of patient: address on file Patient Identification confirmed using: Name, : Yes Telehealth method: voice only Patient verbally consented to treatment: Yes Patient verbally consented to billing insurance company: Yes Coding Level of Care Code Tele Est Pt Level 2 (50619) Diagnoses Major depressive disorder, recurrent, moderate F33.1 Time Spent (min) 15 Comment 10 mins with patient remainder on documentation
== END 2023-08-29 13:08 | disposition home or self-care (01) ==
PROVIDERS: PCP Internal Medicine; Visit Provider Nurse Practitioner Psychiatric/Mental Health
DX: F10.21 Alcohol dependence, in remission (principal); F33.1 Major depressive disorder, recurrent, moderate
CPT/HCPCS: 99212

== ENCOUNTER → 2023-08-29 12:56 | Outpatient (BNVA) | payer OTHER, SELFPAY | PROVIDERS: PCP Internal Medicine; Visit Provider Nurse Practitioner Psychiatric/Mental Health ==

== ENCOUNTER 2023-09-13 15:03 | Outpatient (AMB) | payer OTHER, SELFPAY ==
--- NOTE | 2023-09-13 15:09 | MHC.AM.SUB ---
Intake Vital Signs 09/13/23 15:18 BP 126/84 Blood Pressure Location Lt radial Position Sitting Pulse 74 Pulse Source Pulse Oximeter Pulse Oximetry (%) 99 Oxygen Delivery Method Room Air Intake Visit Reasons: Kalyani inj Intake Note: the patient presents for a kalyani inj Backpackers Manager Required: No Allergies Penicillins [PCN] Allergy (Unknown, Verified 09/13/23 15:09) UNKNOWN ethinyl estradiol [Sprintec (28)] Adverse Reaction (Intermediate, Verified 09/13/23 15:09) headache- all hormonal controls norgestimate [Sprintec (28)] Adverse Reaction (Intermediate, Verified 09/13/23 15:09) headache- all hormonal controls Do you need a note to return to daycare/school/sports/work: No [facility] Medical History (Updated 08/29/23 @ 13:16 by Kylee Vora CNP) Alcohol use disorder, moderate, dependence Alcohol use disorder Hemorrhoids with complication Depression Obesity (BMI 30-39.9) Surgical History H/O hemorrhoidectomy (09/26/22) S/P section History of laparoscopic cholecystectomy (~07/2017) Hx of myringotomy Family History Father Hypertension Diabetes Mother Diabetes Hypertension Myocardial infarction, Onset Age: 65 Maternal Grandmother Myocardial infarction, Onset Age: 50 Sister Devic's disease Social History Household Members: Children Housing: House Alcohol intake: former Patient Tobacco Use Status: Former Tobacco user Quit Date: 114 days ago from 02/21/2023 Tobacco use type: Cigarette Cigarette Packs Per Day: 0 Cigarettes Per Day: 1 e-Cigarette/Vaping Use: Never Used Second Hand Smoke Exposure: No service: No 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: No Sexual orientation: Straight/Heterosexual Gender identity: Female Cognitive needs: No Hearing needs: No Vision needs: Yes Female Reproductive History Menstrual Age of Menarche: 11 Physical Exam Vital Signs: Last Vital Signs Pulse 74 09/13/23 15:18 BP 126/84 09/13/23 15:18 Pulse Ox 99 09/13/23 15:18 Oxygen Delivery Method Room Air 09/13/23 15:18 Office Meds Vivitrol 380 mg intramuscular suspension,extended release Performing Provider: Janki Garcias NP Performing Location: [facility] Administered by: Verónica Sears RN on 09/13/23 15:49 Dose Route Admin Location Dispensed Lot Number Expiration Date [employer] Product Manager 380 mg IM RG 380 mg 2023-3025T 10/22/25 [id number] [employer] Comments: Patient denies concerns about previous injection and tolerated injection well. Educated on signs and symptoms of infection, encouraged to call [facility] with any questions or concerns, Pt verbalized understanding. Results AMB Test Urine AMB Test Urine Negative Last Edit by Chloe Rowley CMA on 09/13/23 15:19 Results Reviewed Results Reviewed: Laboratory Last Values Tst Clinic Negative 09/13/23 15:10 Assessment & Plan Assessment & Plan (1) Alcohol use disorder, moderate, in sustained remission: Code(s): F10.21 - Alcohol dependence, in remission Orders: Orders AMB Naltrexone Injection - Practice Supplied Today F10.21 - Alcohol dependence, in remission AMB HCG Urine Test Today Z32.01 - Encounter for test, result positive, Z32.02 - Encounter for test, result negative Medications: Refilled bupropion HCl 300 mg PO QAM 90 tabs 0RF fluoxetine 20 mg PO DAILY 30 caps 0RF nicotine (polacrilex) 4 mg buccal Q8H PRN 108 ea 2RF nicotine cravings Coding Diagnoses Alcohol use disorder, moderate, in sustained remission F10.21
[2023-09-13 15:18] VITALS: BP 126/84; PULSE 74; O2SAT 99
--- NOTE | 2023-09-13 15:50 | AM.OFFVISNUR ---
Intake Vital Signs 09/13/23 15:18 BP 126/84 Blood Pressure Location Lt radial Position Sitting Pulse 74 Pulse Source Pulse Oximeter Pulse Oximetry (%) 99 Oxygen Delivery Method Room Air Intake Visit Reasons: Kalyani inj Allergies Penicillins [PCN] Allergy (Unknown, Verified 09/13/23 15:09) UNKNOWN ethinyl estradiol [Sprintec (28)] Adverse Reaction (Intermediate, Verified 09/13/23 15:09) headache- all hormonal controls norgestimate [Sprintec (28)] Adverse Reaction (Intermediate, Verified 09/13/23 15:09) headache- all hormonal controls Nursing Note Paitent present for 4 week AUD visit and Vivitrol injection. Patient is alert, oriented and cooperative with treatment. 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 Pt requested refills on her medications; provider was notified. Pt denies any other concerns and will schedule follow-up appointment in 4 weeks for next check in and injection. Office Meds Vivitrol 380 mg intramuscular suspension,extended release Performing Provider: Janki Garcias NP Performing Location: [facility] Administered by: Verónica Sears RN on 09/13/23 15:49 Dose Route Admin Location Dispensed Lot Number Expiration Date [facility] Optimization Engineer 380 mg IM RG 380 mg 2023-3025T 10/22/25 42671-339-92 [employer] Comments: Patient denies concerns about previous injection and tolerated injection well. Educated on signs and symptoms of infection, encouraged to call [facility] with any questions or concerns, Pt verbalized understanding. Results AMB Test Urine AMB Test Urine Negative Last Edit by Chloe Rowley CMA on 09/13/23 15:19 Coding Diagnoses Alcohol use disorder, moderate, in sustained remission F10.21 Assessment & Plan Assessment & Plan (1) Alcohol use disorder, moderate, in sustained remission: Code(s): F10.21 - Alcohol dependence, in remission Category: Medical Orders: Orders AMB Naltrexone Injection - Practice Supplied Today F10.21 - Alcohol dependence, in remission AMB HCG Urine Test Today Z32.01 - Encounter for test, result positive, Z32.02 - Encounter for test, result negative Medications: Refilled bupropion HCl 300 mg PO QAM 90 tabs 0RF fluoxetine 20 mg PO DAILY 30 caps 0RF nicotine (polacrilex) 4 mg buccal Q8H PRN 108 ea 2RF nicotine cravings
--- NOTE | 2023-09-13 16:59 | AM.OFFVISNUR ---
Intake Vital Signs 09/13/23 15:18 BP 126/84 Blood Pressure Location Lt radial Position Sitting Pulse 74 Pulse Source Pulse Oximeter Pulse Oximetry (%) 99 Oxygen Delivery Method Room Air Intake Visit Reasons: Kalyani inj Allergies Penicillins [PCN] Allergy (Unknown, Verified 09/13/23 15:09) UNKNOWN ethinyl estradiol [Sprintec (28)] Adverse Reaction (Intermediate, Verified 09/13/23 15:09) headache- all hormonal controls norgestimate [Sprintec (28)] Adverse Reaction (Intermediate, Verified 09/13/23 15:09) headache- all hormonal controls Office Meds Vivitrol 380 mg intramuscular suspension,extended release Performing Provider: Janki Garcias NP Performing Location: [facility] Administered by: Verónica Sears RN on 09/13/23 15:49 Dose Route Admin Location Dispensed Lot Number Expiration Date [employer] Mixer Operator 380 mg IM RG 380 mg 2023-3025T 10/22/25 29528-387-88 [employer] Comments: Patient denies concerns about previous injection and tolerated injection well. Educated on signs and symptoms of infection, encouraged to call [facility] with any questions or concerns, Pt verbalized understanding. Results AMB Test Urine AMB Test Urine Negative Last Edit by Chloe Rowley CMA on 09/13/23 15:19 Coding Diagnoses Alcohol use disorder, moderate, in sustained remission F10.21 Assessment & Plan Assessment & Plan (1) Alcohol use disorder, moderate, in sustained remission: Code(s): F10.21 - Alcohol dependence, in remission Category: Medical Orders: Orders AMB Naltrexone Injection - Practice Supplied Today F10.21 - Alcohol dependence, in remission AMB HCG Urine Test Today Z32.01 - Encounter for test, result positive, Z32.02 - Encounter for test, result negative Medications: Refilled bupropion HCl 300 mg PO QAM 90 tabs 0RF fluoxetine 20 mg PO DAILY 30 caps 0RF nicotine (polacrilex) 4 mg buccal Q8H PRN 108 ea 2RF nicotine cravings
== END 2023-09-13 15:50 | disposition home or self-care (01) ==
PROVIDERS: PCP Internal Medicine
DX: Z32.02 Encounter for pregnancy test, result negative (principal); Z32.01 Encounter for pregnancy test, result positive; F10.21 Alcohol dependence, in remission

== ENCOUNTER → 2023-09-13 15:03 | Outpatient (BNVA) | payer OTHER, SELFPAY | PROVIDERS: PCP Internal Medicine | DX: Z51.81 Encounter for therapeutic drug level monitoring (principal); F10.20 Alcohol dependence, uncomplicated; Z32.02 Encounter for pregnancy test, result negative; Z79.899 Other long term (current) drug therapy | CPT/HCPCS: 81025; 96372; J2315 ==

== ENCOUNTER 2023-10-18 11:30 | Outpatient (AMB) | payer OTHER, SELFPAY ==
[2023-10-18 11:55] VITALS: BP 132/82; O2SAT 97
--- NOTE | 2023-10-18 11:55 | AM.OFFVISNUR ---
Intake Vital Signs 10/18/23 11:55 BP 132/82 Blood Pressure Location Rt brachial Position Sitting Pulse Source Pulse Oximeter Pulse Oximetry (%) 97 Oxygen Delivery Method Room Air Intake Visit Reasons: Kalyani inj Allergies Penicillins [PCN] Allergy (Unknown, Verified 09/13/23 15:09) UNKNOWN ethinyl estradiol [Sprintec (28)] Adverse Reaction (Intermediate, Verified 09/13/23 15:09) headache- all hormonal controls norgestimate [Sprintec (28)] Adverse Reaction (Intermediate, Verified 09/13/23 15:09) headache- all hormonal controls Coding
--- NOTE | 2023-10-18 12:13 | AM.OFFVISNUR ---
Intake Vital Signs 10/18/23 11:55 BP 132/82 Blood Pressure Location Rt brachial Position Sitting Pulse Source Pulse Oximeter Pulse Oximetry (%) 97 Oxygen Delivery Method Room Air Intake Visit Reasons: Kalyani inj Allergies Penicillins [PCN] Allergy (Unknown, Verified 09/13/23 15:09) UNKNOWN ethinyl estradiol [Sprintec (28)] Adverse Reaction (Intermediate, Verified 09/13/23 15:09) headache- all hormonal controls norgestimate [Sprintec (28)] Adverse Reaction (Intermediate, Verified 09/13/23 15:09) headache- all hormonal controls Nursing Note Patient present for 4 week follow up visit and Vivitrol injection. Pt is alert and oriented, in good spirits, calm and cooperative with care. Pt just returned from a vacation to [place] for two weeks to visit with family; reports eating and sleeping well as well as no concerns with maintained recovery. Pt excited about pursuing a nursing degree, next appointment in 4 weeks for check-in and next monthly injection. Office Meds Vivitrol 380 mg intramuscular suspension,extended release Performing Provider: Janki Garcias NP Performing Location: [facility] Administered by: Verónica Sears RN on 10/18/23 12:13 Dose Route Admin Location Dispensed Lot Number Expiration Date [facility] Right Of Way Supervisor 380 mg IM LG 380 mg 2023-1029T 11/22/25 [id number] [employer] Comments: Patient denies concerns about previous injection and tolerated injection well. Educated on signs and symptoms of infection, encouraged to call [facility] with any questions or concerns, Pt verbalized understanding. Results AMB Test Urine AMB Test Urine Negative Last Edit by Verónica Sears RN on 10/18/23 12:28 Coding Assessment & Plan Assessment & Plan Orders: Orders AMB HCG Urine Test Today F10.21 - Alcohol dependence, in remission AMB Naltrexone Injection Patient Supplied ([place]) Today F10.21 - Alcohol dependence, in remission
== END 2023-10-18 12:10 | disposition home or self-care (01) ==
PROVIDERS: PCP Internal Medicine
DX: F10.21 Alcohol dependence, in remission (principal)

== ENCOUNTER → 2023-10-18 11:30 | Outpatient (BNVA) | payer OTHER, SELFPAY | PROVIDERS: PCP Internal Medicine | DX: F10.21 Alcohol dependence, in remission (principal); Z79.899 Other long term (current) drug therapy | CPT/HCPCS: 81025; 96372; J2315 ==

== ENCOUNTER 2023-11-14 13:27 | Outpatient (AMB) | payer OTHER, SELFPAY ==
--- NOTE | 2023-11-14 13:27 | AM.OFFVISNUR ---
Intake Vital Signs 11/14/23 13:30 BP 152/90 H Blood Pressure Location Rt brachial Position Sitting Pulse 98 Pulse Source Pulse Oximeter Pulse Oximetry (%) 98 Oxygen Delivery Method Room Air Intake Visit Reasons: Kalyani inj Allergies Penicillins [PCN] Allergy (Unknown, Verified 09/13/23 15:09) UNKNOWN ethinyl estradiol [Sprintec (28)] Adverse Reaction (Intermediate, Verified 09/13/23 15:09) headache- all hormonal controls norgestimate [Sprintec (28)] Adverse Reaction (Intermediate, Verified 09/13/23 15:09) headache- all hormonal controls Nursing Note Patient in good spirits, here for injection, brought her two children with her to meet me. 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 Will follow up in 4 weeks. She stated this was her 1 year gabbie of not drinking. Office Meds Vivitrol 380 mg intramuscular suspension,extended release Performing Provider: Kylee Vora CNP Performing Location: [facility] Administered by: Nidia Larkin RN on 11/15/23 13:09 Dose Route Admin Location Dispensed Lot Number Expiration Date [facility] Board Stacker 380 mg IM 380 mg 2023-3030T 11/22/25 [id number] [employer] Results AMB Test Urine AMB Test Urine Negative Last Edit by Myah Knight CMA on 11/14/23 13:34 Coding Assessment & Plan Assessment & Plan Orders: Orders AMB HCG Urine Test 11/14/23 Janki Garcias NP Z32.02 - Encounter for test, result negative AMB Naltrexone Injection Patient Supplied (NC) 11/14/23 Kylee Vora CNP F10.21 - Alcohol dependence, in remission Medications: New Vivitrol ER (naltrexone microspheres) 380 mg IM ONCE 1 ea 0RF NS Kylee Vora CNP F10.21 - Alcohol dependence, in remission
[2023-11-14 13:30] VITALS: BP 152/90; PULSE 98; O2SAT 98
== END 2023-11-14 13:50 | disposition home or self-care (01) ==
LOC: HO.HCC 13:35
PROVIDERS: PCP Internal Medicine
DX: F10.21 Alcohol dependence, in remission (principal)

== ENCOUNTER → 2023-11-14 13:30 | Outpatient (BNV) | payer OTHER, SELFPAY | PROVIDERS: PCP Internal Medicine; Visit Provider Nurse Practitioner Family | DX: Z32.02 Encounter for pregnancy test, result negative (principal) | CPT/HCPCS: 81025 ==

== ENCOUNTER → 2023-11-14 13:35 | Outpatient (BNVA) | payer OTHER, SELFPAY | PROVIDERS: PCP Internal Medicine | DX: F10.21 Alcohol dependence, in remission (principal); Z32.02 Encounter for pregnancy test, result negative; Z79.899 Other long term (current) drug therapy | CPT/HCPCS: 96372; J2315 ==

== ENCOUNTER 2023-12-12 15:32 | Outpatient (AMB) | payer OTHER, SELFPAY ==
--- NOTE | 2023-12-12 16:03 | A.OFFVISCC_ITS ---
Intake Visit Reasons: MAT Visit/Kalyani Inj Allergies Penicillins [PCN] Allergy (Unknown, Verified 09/13/23 15:09) UNKNOWN ethinyl estradiol [Sprintec (28)] Adverse Reaction (Intermediate, Verified 09/13/23 15:09) headache- all hormonal controls norgestimate [Sprintec (28)] Adverse Reaction (Intermediate, Verified 09/13/23 15:09) headache- all hormonal controls HPI HPI MAT Visit/Kalyani Inj: Details: Patient presents for follow up and vivitrol injection Continues to abstain from alcohol, feeling good about her recovery and the work she has done over the last year Excited to share that she will me moving to [place] before the end of the summer. has already researched providers in the area she will be moving to. Tolerating injections. requesting refills on medication prior to moving [facility] Medical History (Updated 08/29/23 @ 13:16 by Kylee Vora CNP) Alcohol use disorder, moderate, dependence Alcohol use disorder Hemorrhoids with complication Depression Obesity (BMI 30-39.9) Surgical History H/O hemorrhoidectomy (09/26/22) S/P section History of laparoscopic cholecystectomy (~07/2017) Hx of myringotomy Family History Father Hypertension Diabetes Mother Diabetes Hypertension Myocardial infarction, Onset Age: 65 Maternal Grandmother Myocardial infarction, Onset Age: 50 Sister Devic's disease Social History Household Members: Children Housing: House Alcohol intake: former Patient Tobacco Use Status: Former Tobacco user Tobacco use type: Cigarette Cigarette Packs Per Day: 0 Cigarettes Per Day: 1 e-Cigarette/Vaping Use: Never Used Second Hand Smoke Exposure: No service: No 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: No Sexual orientation: Straight/Heterosexual Gender identity: Female Cognitive needs: No Hearing needs: No Vision needs: Yes Female Reproductive History Menstrual Age of Menarche: 11 Review of Systems Const Reports as per HPI and Reports no additional complaints Physical Exam Const General: cooperative, healthy appearing and well groomed Nutritional Appearance: average body habitus Orientation/consciousness: patient oriented x3 Limitations: no limitations Neuro General: patient oriented x3 Office Meds Vivitrol 380 mg intramuscular suspension,extended release Performing Provider: Kylee Vora CNP Performing Location: [facility] Administered by: Nidia Larkin RN on 12/12/23 16:42 Dose Route Admin Location Dispensed Lot Number Expiration Date [facility] Methods Study Analyst 380 mg IM LG 380 mg 2023-3027T 11/22/25 12664-028-74 [employer] Assessment & Plan Assessment & Plan (1) Alcohol use disorder, moderate, in sustained remission: Code(s): F10.21 - Alcohol dependence, in remission Category: Medical Plan: * tolerated injection * refilled naltrexone and wellbutrin * will see RN next month for last injeciton in office Orders: Orders AMB Naltrexone Injection Patient Supplied (NC) 12/12/23 F10.21 - Alcohol dependence, in remission Medications: Refilled naltrexone 50 mg PO DAILY 90 tabs 3RF bupropion HCl XL 300 mg PO QAM 90 tabs 2RF
== END 2023-12-12 16:37 | disposition home or self-care (01) ==
PROVIDERS: PCP Internal Medicine
DX: F10.21 Alcohol dependence, in remission (principal)
CPT/HCPCS: 99213

== ENCOUNTER → 2023-12-12 15:32 | Outpatient (BNVA) | payer OTHER, SELFPAY | PROVIDERS: PCP Internal Medicine | DX: F10.21 Alcohol dependence, in remission (principal); Z79.899 Other long term (current) drug therapy | CPT/HCPCS: 96372; 99212; J2315 ==

== ENCOUNTER 2024-01-09 15:05 | Outpatient (AMB) | payer OTHER, SELFPAY ==
--- NOTE | 2024-01-09 15:11 | AM.OFFVISNUR ---
Intake Visit Reasons: Kalyani Inj Allergies Penicillins [PCN] Allergy (Unknown, Verified 09/13/23 15:09) UNKNOWN ethinyl estradiol [Sprintec (28)] Adverse Reaction (Intermediate, Verified 09/13/23 15:09) headache- all hormonal controls norgestimate [Sprintec (28)] Adverse Reaction (Intermediate, Verified 09/13/23 15:09) headache- all hormonal controls Nursing Note Patient here today in clinic for vivitrol injection. Pt is alert and oriented x4, in good spirits, speaking in clear/full sentences. Denies any complications with previous injection. Patient is moving to [place], states she has established care in [place], she is very excited and states she will reach out for anything in the future she may need. Office Meds Vivitrol 380 mg intramuscular suspension,extended release Performing Provider: Kylee Vora CNP Performing Location: [facility] Administered by: Nidia Larkin RN on 01/11/24 14:52 Dose Route Admin Location Dispensed Lot Number Expiration Date [facility] Horologist Apprentice 380 mg IM RG 380 mg 2023-3027T 11/22/25 15944-744-64 [employer] Assessment & Plan Assessment & Plan Orders: Orders AMB Naltrexone Injection Patient Supplied (NC) 01/09/24 F10.21 - Alcohol dependence, in remission
== END 2024-01-09 15:17 | disposition home or self-care (01) ==
PROVIDERS: PCP Internal Medicine
DX: F10.21 Alcohol dependence, in remission (principal)

== ENCOUNTER → 2024-01-09 15:05 | Outpatient (BNVA) | payer OTHER, SELFPAY | PROVIDERS: PCP Internal Medicine | DX: F10.21 Alcohol dependence, in remission (principal) | CPT/HCPCS: 96372; J2315 ==